=== PATIENT | male | born 1955 | race African-American/Black ===

== ENCOUNTER 2017-06-13 16:21 | Inpatient (IN) ==
[2017-06-13] MEDS ORDERED: methylPREDNISolone SOD SUC 125 MG/2 ML VIAL IV STA (16:42)
[2017-06-13] MEDS ORDERED: LEVOFLOXACIN INJ 500 MG in PREMIX 1 EACH IV STA (16:42)
[2017-06-13] MEDS ORDERED: FUROSEMIDE 100 MG/10 ML VIAL IV STA (16:42)
[2017-06-13] MEDS ORDERED: ALBUTEROL/IPRATROPIUM 3 ML NEB RESP TX STA (16:42)
[2017-06-13] MEDS ORDERED: LEVOFLOXACIN INJ 100 ML IV ONE (16:53)
[2017-06-13] MEDS ORDERED: FUROSEMIDE 40 MG/4 ML VIAL ONE (16:53)
[2017-06-13] MEDS ORDERED: FUROSEMIDE 20 MG/2 ML VIAL ONE (16:53)
[2017-06-13] MEDS ORDERED: methylPREDNISolone SOD SUC 125 MG/2 ML VIAL ONE (16:54)
[2017-06-13 17:03] LABS: Basophils % 0.3 % (0.0-0.8); Eosinophils % 0.2 % (0.00-10.9); Hematocrit 28.2 VOL% (42.0-52.0); Hemoglobin 8.4 GM/DL (14.0-18.0); Immature Granulocytes % 0.9 %; Immature Granulocytes Absolute 0.11 #; Lymphocytes % 8.4 % (21.2-54.2); Mean Corpuscular HGB Conc 29.8 GM/DL (32-36); Mean Corpuscular Hemoglobin 26 PG (27-34); Mean Corpuscular Volume 85.5 FL (87-102); Mean Platelet Volume 8.9 FL (9.6-12.0); Monocytes % 8.1 % (1.7-12.7); Neutrophils # 9.6 10*3/uL (1.4-7.4); Neutrophils % 82.1 % (38.7-73.9); Platelet Count 505 T/CUMM (130-400); Red Cell Distribution Width 15.9 % (9.3-17.3); White Blood Count 11.7 T/CUMM (4-12)
[2017-06-13 17:21] LABS: Alanine Aminotransferase 54 U/L (16-61); Albumin 2.2 G/DL (3.4-5.0); Alkaline Phosphatase 104 U/L (45-117); Aspartate Amino Transferase 48 U/L (0-37); Bilirubin,Total < 0.39 MG/DL (0.2-1.0); Blood Urea Nitrogen 12 MG/DL (7-18); Calcium 8.8 MG/DL (8.5-10.1); Glucose 120 MG/DL (74-106); Potassium 3.7 MMOL/L (3.5-5.1); Sodium 136 MMOL/L (136-145); Total Protein 7.8 G/DL (6.4-8.3); Troponin I Only < 0.015 NG/ML (0.00-0.045)
[2017-06-13 17:40] LABS: ABG Base Excess 3.2 MMOL/L (-2.5-2.5); ABG HCO3 27.4 MMOL/L (20-26); ABG PCO2 57.2 MM HG (35-48); ABG TCO2 28.1 MMOL/L (23-27)
[2017-06-13] MEDS ORDERED: ALBUTEROL NEB SOLN 5 MG/ML 20 ML/BOTTLE CONT NEB STA (17:45)
[2017-06-13] MEDS ORDERED: ONDANSETRON 4 MG/2 ML VIAL IV PRN (18:54)
[2017-06-13] MEDS: ALBUTEROL/IPRATROPIUM 3 ML NEB RESP TX SCH ×2 (19:01→23:19)
[2017-06-13] MEDS ORDERED: ETOMIDATE 20 MG/10 ML VIAL IV ONE ×2 (19:14→19:26)
[2017-06-13] MEDS ORDERED: SUCCINYLCHOLINE 200 MG/10 ML VIAL ONE (19:14)
[2017-06-13] MEDS ORDERED: PROPOFOL 1,000 MG/100 ML BOTTLE IV ONE (19:25)
[2017-06-13] MEDS ORDERED: SUCCINYLCHOLINE 200 MG/10 ML VIAL IV ONE (19:28)
[2017-06-13] MEDS: PHENYLEPHRINE DRIP 40 MG/250 ML PREMIX IV PRN (19:50)
[2017-06-13] MEDS: PROPOFOL 1,000 MG/100 ML BOTTLE IV SCH (20:00)
[2017-06-13] MEDS: SODIUM CHLORIDE 0.9% 1,000 ML IV SCH (20:19)
[2017-06-13] MEDS: PIPERACILLIN/TAZOBACTAM 3,375 MG in SODIUM CHLORIDE 0.9% 100 ML IV SCH (20:20)
[2017-06-13] MEDS: NICOTINE 21 MG/24 HR PATCH TRANSDERM PRN (20:20)
[2017-06-13] MEDS: LORazepam 2 MG/1 ML VIAL IV PRN (20:29)
[2017-06-13 20:32] LABS: ABG Base Excess 2.9 MMOL/L (-2.5-2.5); ABG PCO2 42.5 MM HG (35-48); ABG TCO2 25.8 MMOL/L (23-27); Allen Test Positive; Pt O2 Delivery Device Ventilator
[2017-06-14] MEDS: PROPOFOL 1,000 MG/100 ML BOTTLE IV SCH ×3 (01:01→16:49)
[2017-06-14] MEDS: ALBUTEROL/IPRATROPIUM 3 ML NEB RESP TX SCH ×6 (03:02→23:21)
[2017-06-14 03:09] LABS: ABG Base Excess 1.6 MMOL/L (-2.5-2.5); ABG HCO3 25.9 MMOL/L (20-26); ABG Oxygen Saturation 99.4 % (95-100); ABG PCO2 43.2 MM HG (35-48); ABG PH 7.397 (7.35-7.45); Allen Test Positive; Pt O2 Delivery Device Ventilator
[2017-06-14] MEDS: PHENYLEPHRINE DRIP 40 MG/250 ML PREMIX IV PRN ×2 (03:19→11:02)
[2017-06-14] MEDS: SODIUM CHLORIDE 0.9% 1,000 ML IV SCH ×3 (04:01→20:28)
[2017-06-14] MEDS: PIPERACILLIN/TAZOBACTAM 3,375 MG in SODIUM CHLORIDE 0.9% 100 ML IV SCH ×3 (05:24→20:27)
[2017-06-14 06:13] LABS: Basophils % 0.1 % (0.0-0.8); Immature Granulocytes % 0.9 %; Lymphocytes # 0.6 10*3/uL (1.4-4.0); Lymphocytes % 5.3 % (21.2-54.2); Mean Corpuscular HGB Conc 29.2 GM/DL (32-36); Mean Corpuscular Hemoglobin 25 PG (27-34); Mean Corpuscular Volume 85.1 FL (87-102); Monocytes # 0.5 10*3/uL (0.11-0.8); Monocytes % 4.2 % (1.7-12.7); Neutrophils # 10.4 10*3/uL (1.4-7.4); Neutrophils % 89.5 % (38.7-73.9); Platelet Count 525 T/CUMM (130-400); Red Blood Count 2.82 MC/CUMM (3.8-5.5); Red Cell Distribution Width 15.9 % (9.3-17.3); White Blood Count 11.6 T/CUMM (4-12)
[2017-06-14 06:33] LABS: Alanine Aminotransferase 44 U/L (16-61); Albumin 1.9 G/DL (3.4-5.0); Alkaline Phosphatase 90 U/L (45-117); Aspartate Amino Transferase 30 U/L (0-37); Bilirubin,Total < 0.39 MG/DL (0.2-1.0); Blood Urea Nitrogen 14 MG/DL (7-18); Calcium 8.7 MG/DL (8.5-10.1); Glucose 155 MG/DL (74-106); Osmolality,Calculated 282.4 MOS/KG (273-304); Potassium 3.9 MMOL/L (3.5-5.1); Sodium 140 MMOL/L (136-145)
[2017-06-14] MEDS ORDERED: PANTOPRAZOLE 40 MG TABLET PO SCH (09:00)
[2017-06-14] MEDS: PANTOPRAZOLE 40 MG VIAL IV SCH (10:14)
[2017-06-14] MEDS: methylPREDNISolone SOD SUC 40 MG/1 ML VIAL IV SCH ×2 (10:14→16:47)
[2017-06-14] MEDS ORDERED: SODIUM CHLORIDE 0.9% 1,000 ML IV PRN (10:50)
[2017-06-14 11:24] LABS: Apearance,Urine Slightly Hazy (Clear); Bacteria,Urine Occasional /HPF (Few); Bilirubin,Urine Negative (Negative); Blood, Urine Small mg/dL (Negative); Glucose,Urine (UA) Negative (Negative); Ketones,Urine Negative (Negative); Mucus,Urine Occasional /LPF (Occasional); Nitrite,Urine Negative (Negative); Protein,Urine Negative; RBC,Urine 3 /HPF (0-4); Squamous Epithelial Cell,Urine Occasional /HPF (0-10); Urine Color Yellow (Yellow); Urine Specific Gravity 1.011 (1.001-1.035); Urine Urobilinogen < 2.0 EU/DL (0.2-1.0); WBC,Urine 1 /HPF (0-6)
[2017-06-15] MEDS: PROPOFOL 1,000 MG/100 ML BOTTLE IV SCH ×5 (00:38→22:18)
[2017-06-15] MEDS: methylPREDNISolone SOD SUC 40 MG/1 ML VIAL IV SCH ×3 (00:43→16:29)
[2017-06-15] MEDS: ALBUTEROL/IPRATROPIUM 3 ML NEB RESP TX SCH ×6 (03:28→23:21)
[2017-06-15] MEDS: PHENYLEPHRINE DRIP 40 MG/250 ML PREMIX IV PRN (03:42)
[2017-06-15] MEDS: PIPERACILLIN/TAZOBACTAM 3,375 MG in SODIUM CHLORIDE 0.9% 100 ML IV SCH ×3 (03:42→20:06)
[2017-06-15 04:22] LABS: Basophils % 0.1 % (0.0-0.8); Hematocrit 29.2 VOL% (42.0-52.0); Hemoglobin 9.3 GM/DL (14.0-18.0); Immature Granulocytes % 0.9 %; Immature Granulocytes Absolute 0.18 #; Lymphocytes # 0.6 10*3/uL (1.4-4.0); Lymphocytes % 3.1 % (21.2-54.2); Mean Corpuscular HGB Conc 31.8 GM/DL (32-36); Mean Corpuscular Hemoglobin 27 PG (27-34); Mean Corpuscular Volume 83.9 FL (87-102); Mean Platelet Volume 9.3 FL (9.6-12.0); Monocytes # 0.6 10*3/uL (0.11-0.8); Monocytes % 2.8 % (1.7-12.7); Neutrophils # 18.2 10*3/uL (1.4-7.4); Neutrophils % 93.1 % (38.7-73.9); Platelet Count 451 T/CUMM (130-400); Red Blood Count 3.48 MC/CUMM (3.8-5.5); Red Cell Distribution Width 15.7 % (9.3-17.3); White Blood Count 19.6 T/CUMM (4-12)
[2017-06-15 04:33] LABS: ABG Base Excess 2.2 MMOL/L (-2.5-2.5); ABG HCO3 26.7 MMOL/L (20-26); ABG Oxygen Saturation 99.2 % (95-100); ABG PCO2 41.5 MM HG (35-48); ABG PH 7.427 (7.35-7.45); ABG PO2 189.8 MM HG (80-95); Allen Test Positive; Pt O2 Delivery Device Ventilator
[2017-06-15 04:57] LABS: Calcium 8.9 MG/DL (8.5-10.1); Osmolality,Calculated 286.8 MOS/KG (273-304); Potassium 4.4 MMOL/L (3.5-5.1)
[2017-06-15] MEDS: SODIUM CHLORIDE 0.9% 1,000 ML IV SCH ×2 (05:23→11:52)
[2017-06-15 05:30] LABS: Hypochromasia 1+; Lymphocytes 1 % (20-55); Platelet Estimate Adequate; Segmented Neutrophils 97 % (50-85); Target Cells Few; Total Cells Counted 100
[2017-06-15 05:31] LABS: Ovalocytes Slight
[2017-06-15] MEDS: PANTOPRAZOLE 40 MG VIAL IV SCH (09:20)
[2017-06-15] MEDS: NICOTINE 21 MG/24 HR PATCH TRANSDERM PRN (09:22)
[2017-06-16] MEDS: methylPREDNISolone SOD SUC 40 MG/1 ML VIAL IV SCH ×3 (02:18→16:33)
[2017-06-16] MEDS: SODIUM CHLORIDE 0.9% 1,000 ML IV SCH ×3 (02:19→18:43)
[2017-06-16] MEDS: PROPOFOL 1,000 MG/100 ML BOTTLE IV SCH ×5 (02:20→22:02)
[2017-06-16] MEDS: ALBUTEROL/IPRATROPIUM 3 ML NEB RESP TX SCH ×6 (02:53→23:56)
[2017-06-16] MEDS: PIPERACILLIN/TAZOBACTAM 3,375 MG in SODIUM CHLORIDE 0.9% 100 ML IV SCH ×3 (03:35→22:01)
[2017-06-16 04:36] LABS: ABG Base Excess 4.1 MMOL/L (-2.5-2.5); ABG HCO3 28.1 MMOL/L (20-26); ABG Oxygen Saturation 99.5 % (95-100); ABG PCO2 47.9 MM HG (35-48); ABG PH 7.402 (7.35-7.45); ABG TCO2 26.1 MMOL/L (23-27); Allen Test Positive; Pt O2 Delivery Device Ventilator
[2017-06-16 05:34] LABS: Basophils % 0.1 % (0.0-0.8); Hematocrit 29.7 VOL% (42.0-52.0); Hemoglobin 9.4 GM/DL (14.0-18.0); Immature Granulocytes % 0.8 %; Immature Granulocytes Absolute 0.14 #; Lymphocytes # 0.5 10*3/uL (1.4-4.0); Lymphocytes % 2.8 % (21.2-54.2); Mean Corpuscular HGB Conc 31.6 GM/DL (32-36); Mean Corpuscular Hemoglobin 27 PG (27-34); Mean Corpuscular Volume 84.9 FL (87-102); Mean Platelet Volume 9.4 FL (9.6-12.0); Monocytes # 0.6 10*3/uL (0.11-0.8); Monocytes % 3.5 % (1.7-12.7); Neutrophils # 15.4 10*3/uL (1.4-7.4); Neutrophils % 92.8 % (38.7-73.9); Platelet Count 404 T/CUMM (130-400); Red Cell Distribution Width 16.3 % (9.3-17.3); White Blood Count 16.6 T/CUMM (4-12)
[2017-06-16 06:00] LABS: Calcium 8.8 MG/DL (8.5-10.1); Osmolality,Calculated 290.7 MOS/KG (273-304); Potassium 4.1 MMOL/L (3.5-5.1)
[2017-06-16 06:27] LABS: Band Neutrophils 1 % (0-10); Lymphocytes 2 % (20-55); Myelocytes 1 %; Segmented Neutrophils 96 % (50-85); Total Cells Counted 100
[2017-06-16 06:28] LABS: Anisocytosis 1+
[2017-06-16 06:30] LABS: Hypochromasia 1+; Platelet Estimate Normal; Target Cells Few
[2017-06-16] MEDS ORDERED: LIDOCAINE 1% 20 ML VIAL MISC INJ ONE (07:30)
[2017-06-16] MEDS: PHENYLEPHRINE DRIP 40 MG/250 ML PREMIX IV PRN (07:31)
[2017-06-16] MEDS: PANTOPRAZOLE 40 MG VIAL IV SCH (09:37)
[2017-06-17] MEDS: methylPREDNISolone SOD SUC 40 MG/1 ML VIAL IV SCH ×3 (01:32→17:03)
[2017-06-17] MEDS: ALBUTEROL/IPRATROPIUM 3 ML NEB RESP TX SCH ×6 (03:41→23:53)
[2017-06-17] MEDS: PIPERACILLIN/TAZOBACTAM 3,375 MG in SODIUM CHLORIDE 0.9% 100 ML IV SCH ×3 (04:16→19:59)
[2017-06-17 04:42] LABS: ABG PH 7.417 (7.35-7.45); ABG PO2 138.4 MM HG (80-95); ABG TCO2 35.7 MMOL/L (23-27); Allen Test Positive; Pt O2 Delivery Device Ventilator
[2017-06-17] MEDS: SODIUM CHLORIDE 0.9% 1,000 ML IV SCH ×2 (05:36→15:36)
[2017-06-17 05:50] LABS: Basophils % 0.1 % (0.0-0.8); Hematocrit 30.3 VOL% (42.0-52.0); Immature Granulocytes % 1.1 %; Immature Granulocytes Absolute 0.17 #; Lymphocytes # 0.7 10*3/uL (1.4-4.0); Lymphocytes % 4.3 % (21.2-54.2); Mean Corpuscular HGB Conc 29.7 GM/DL (32-36); Mean Corpuscular Hemoglobin 26 PG (27-34); Mean Corpuscular Volume 88.6 FL (87-102); Mean Platelet Volume 9.5 FL (9.6-12.0); Monocytes # 0.9 10*3/uL (0.11-0.8); Monocytes % 5.5 % (1.7-12.7); Neutrophils # 14.2 10*3/uL (1.4-7.4); Platelet Count 337 T/CUMM (130-400); Red Blood Count 3.42 MC/CUMM (3.8-5.5); Red Cell Distribution Width 16.7 % (9.3-17.3); White Blood Count 15.9 T/CUMM (4-12)
[2017-06-17 06:19] LABS: Platelet Estimate Normal
[2017-06-17 06:22] LABS: Calcium 8.7 MG/DL (8.5-10.1); Osmolality,Calculated 286.8 MOS/KG (273-304); Potassium 4.5 MMOL/L (3.5-5.1); Prealbumin 11.8 MG/DL (20-40)
[2017-06-17] MEDS: PANTOPRAZOLE 40 MG VIAL IV SCH (09:28)
[2017-06-17] MEDS: PROPOFOL 1,000 MG/100 ML BOTTLE IV SCH ×3 (10:46→23:58)
[2017-06-17] MEDS: PHENYLEPHRINE DRIP 40 MG/250 ML PREMIX IV PRN (14:16)
[2017-06-18] MEDS: methylPREDNISolone SOD SUC 40 MG/1 ML VIAL IV SCH ×3 (02:21→17:53)
[2017-06-18] MEDS: PIPERACILLIN/TAZOBACTAM 3,375 MG in SODIUM CHLORIDE 0.9% 100 ML IV SCH ×3 (03:08→19:46)
[2017-06-18 03:40] LABS: ABG Base Excess 8.1 MMOL/L (-2.5-2.5); ABG HCO3 31.9 MMOL/L (20-26); ABG Oxygen Saturation 99.5 % (95-100); ABG PCO2 50.3 MM HG (35-48); ABG PH 7.433 (7.35-7.45); ABG TCO2 30.8 MMOL/L (23-27)
[2017-06-18] MEDS: ALBUTEROL/IPRATROPIUM 3 ML NEB RESP TX SCH ×6 (03:52→23:46)
[2017-06-18] MEDS: PROPOFOL 1,000 MG/100 ML BOTTLE IV SCH ×3 (04:01→17:55)
[2017-06-18 06:11] LABS: Calcium 8.6 MG/DL (8.5-10.1); Osmolality,Calculated 286.1 MOS/KG (273-304); Potassium 4.1 MMOL/L (3.5-5.1)
[2017-06-18] MEDS: SODIUM CHLORIDE 0.9% 1,000 ML IV SCH ×3 (07:19→21:31)
[2017-06-18] MEDS: PANTOPRAZOLE 40 MG VIAL IV SCH (08:12)
[2017-06-18] MEDS: MORPHINE 4 MG/1 ML VIAL IV PRN ×2 (08:13→15:02)
[2017-06-18] MEDS: LORazepam 2 MG/1 ML VIAL IV PRN ×2 (08:13→15:00)
[2017-06-18] MEDS: PHENYLEPHRINE DRIP 40 MG/250 ML PREMIX IV PRN (09:29)
[2017-06-18 19:26] LABS: AFP Tumor 1.3 NG/ML (0-8); Carcinoembryonic Antigen 3.4 NG/ML (0.0-5.0)
[2017-06-19] MEDS: LORazepam 2 MG/1 ML VIAL IV PRN ×2 (00:15→17:40)
[2017-06-19] MEDS: methylPREDNISolone SOD SUC 40 MG/1 ML VIAL IV SCH ×3 (01:20→16:00)
[2017-06-19] MEDS: PROPOFOL 1,000 MG/100 ML BOTTLE IV SCH ×5 (01:53→23:27)
[2017-06-19] MEDS: PIPERACILLIN/TAZOBACTAM 3,375 MG in SODIUM CHLORIDE 0.9% 100 ML IV SCH ×3 (03:51→19:52)
[2017-06-19] MEDS: ALBUTEROL/IPRATROPIUM 3 ML NEB RESP TX SCH ×6 (03:59→23:15)
[2017-06-19 04:15] LABS: ABG Base Excess 6.8 MMOL/L (-2.5-2.5); ABG HCO3 32.3 MMOL/L (20-26); ABG Oxygen Saturation 98.9 % (95-100); ABG PCO2 50.7 MM HG (35-48); ABG PH 7.422 (7.35-7.45); ABG PO2 138.8 MM HG (80-95); ABG TCO2 33.9 MMOL/L (23-27); Allen Test Positive; Pt O2 Delivery Device Ventilator
[2017-06-19] MEDS: MORPHINE 4 MG/1 ML VIAL IV PRN ×2 (07:34→11:14)
[2017-06-19] MEDS: SODIUM CHLORIDE 0.9% 1,000 ML IV SCH ×2 (07:36→14:50)
[2017-06-19] MEDS: PANTOPRAZOLE 40 MG VIAL IV SCH (09:09)
[2017-06-19] MEDS: PHENYLEPHRINE DRIP 40 MG/250 ML PREMIX IV PRN (09:23)
[2017-06-20] MEDS: methylPREDNISolone SOD SUC 40 MG/1 ML VIAL IV SCH ×3 (01:25→17:15)
[2017-06-20] MEDS: ALBUTEROL/IPRATROPIUM 3 ML NEB RESP TX SCH ×6 (03:40→23:56)
[2017-06-20] MEDS: PIPERACILLIN/TAZOBACTAM 3,375 MG in SODIUM CHLORIDE 0.9% 100 ML IV SCH ×3 (03:40→20:51)
[2017-06-20] MEDS: SODIUM CHLORIDE 0.9% 1,000 ML IV SCH ×2 (03:43→11:19)
[2017-06-20 04:48] LABS: Allen Test Positive; Pt O2 Delivery Device Ventilator
[2017-06-20 04:49] LABS: ABG Base Excess 6.5 MMOL/L (-2.5-2.5); ABG HCO3 30.4 MMOL/L (20-26); ABG Oxygen Saturation 99.6 % (95-100); ABG PCO2 43.2 MM HG (35-48); ABG PH 7.464 (7.35-7.45); ABG TCO2 28.3 MMOL/L (23-27)
[2017-06-20 06:32] LABS: Calcium 8.6 MG/DL (8.5-10.1); Osmolality,Calculated 285.1 MOS/KG (273-304); Potassium 4.3 MMOL/L (3.5-5.1); Prealbumin 18.4 MG/DL (20-40)
[2017-06-20] MEDS: PROPOFOL 1,000 MG/100 ML BOTTLE IV SCH ×3 (07:06→18:17)
[2017-06-20] MEDS: LORazepam 2 MG/1 ML VIAL IV PRN (08:42)
[2017-06-20] MEDS: PANTOPRAZOLE 40 MG VIAL IV SCH (08:45)
[2017-06-20] MEDS: PHENYLEPHRINE DRIP 40 MG/250 ML PREMIX IV PRN (18:33)
[2017-06-21] MEDS: SODIUM CHLORIDE 0.9% 1,000 ML IV SCH ×2 (00:22→14:50)
[2017-06-21] MEDS: PROPOFOL 1,000 MG/100 ML BOTTLE IV SCH ×4 (00:37→19:22)
[2017-06-21] MEDS: methylPREDNISolone SOD SUC 40 MG/1 ML VIAL IV SCH ×4 (00:38→17:00)
[2017-06-21] MEDS: ALBUTEROL/IPRATROPIUM 3 ML NEB RESP TX SCH ×6 (03:50→22:57)
[2017-06-21 04:08] LABS: Allen Test Positive; Pt O2 Delivery Device Ventilator
[2017-06-21 04:09] LABS: ABG Base Excess 6.8 MMOL/L (-2.5-2.5); ABG HCO3 30.7 MMOL/L (20-26); ABG Oxygen Saturation 99.5 % (95-100); ABG PCO2 40.7 MM HG (35-48); ABG PH 7.487 (7.35-7.45); ABG TCO2 28.2 MMOL/L (23-27)
[2017-06-21] MEDS: PIPERACILLIN/TAZOBACTAM 3,375 MG in SODIUM CHLORIDE 0.9% 100 ML IV SCH ×3 (05:00→19:50)
[2017-06-21 05:18] LABS: Basophils % 0.1 % (0.0-0.8); Eosinophils % 0.1 % (0.00-10.9); Hematocrit 30.8 VOL% (42.0-52.0); Hemoglobin 9.2 GM/DL (14.0-18.0); Immature Granulocytes % 1.1 %; Immature Granulocytes Absolute 0.14 #; Lymphocytes # 1.6 10*3/uL (1.4-4.0); Lymphocytes % 12.4 % (21.2-54.2); Mean Corpuscular HGB Conc 29.9 GM/DL (32-36); Mean Corpuscular Hemoglobin 27 PG (27-34); Mean Corpuscular Volume 89.5 FL (87-102); Mean Platelet Volume 10.6 FL (9.6-12.0); Monocytes % 7.7 % (1.7-12.7); Neutrophils # 9.8 10*3/uL (1.4-7.4); Neutrophils % 78.6 % (38.7-73.9); Platelet Count 260 T/CUMM (130-400); Red Blood Count 3.44 MC/CUMM (3.8-5.5); Red Cell Distribution Width 17.8 % (9.3-17.3); White Blood Count 12.5 T/CUMM (4-12)
[2017-06-21 05:59] LABS: Calcium 8.6 MG/DL (8.5-10.1); Potassium 4.1 MMOL/L (3.5-5.1)
[2017-06-21] MEDS: LORazepam 2 MG/1 ML VIAL IV PRN (07:15)
[2017-06-21] MEDS: PANTOPRAZOLE 40 MG VIAL IV SCH (09:58)
[2017-06-21] MEDS ORDERED: MIDAZOLAM 10 MG/2 ML VIAL ONE (11:54)
[2017-06-21] MEDS ORDERED: MIDAZOLAM 2 MG/2 ML VIAL IV ONE (12:17)
[2017-06-21] MEDS: PHENYLEPHRINE DRIP 40 MG/250 ML PREMIX IV PRN ×2 (14:00→20:14)
[2017-06-21 14:36] LABS: ABG Base Excess 1.4 MMOL/L (-2.5-2.5); ABG HCO3 28.8 MMOL/L (20-26); ABG Oxygen Saturation 99.9 % (95-100); ABG PCO2 61.1 MM HG (35-48); ABG PH 7.291 (7.35-7.45); ABG PO2 460.3 MM HG (80-95); ABG TCO2 30.7 MMOL/L (23-27)
[2017-06-21] MEDS: MORPHINE 4 MG/1 ML VIAL IV PRN (15:22)
[2017-06-21] MEDS: ZINC OXIDE PASTE 113 GM TUBE TOP SCH (15:54)
[2017-06-21] MEDS ORDERED: RACEPINEPHRINE 0.5 ML NEB RESP TX ONE (22:44)
[2017-06-22] MEDS: ZINC OXIDE PASTE 113 GM TUBE TOP SCH ×3 (01:04→21:24)
[2017-06-22] MEDS: methylPREDNISolone SOD SUC 40 MG/1 ML VIAL IV SCH ×3 (01:04→18:06)
[2017-06-22] MEDS: PROPOFOL 1,000 MG/100 ML BOTTLE IV SCH ×4 (01:12→19:18)
[2017-06-22] MEDS: PHENYLEPHRINE DRIP 40 MG/250 ML PREMIX IV PRN ×4 (01:40→19:31)
[2017-06-22] MEDS: PIPERACILLIN/TAZOBACTAM 3,375 MG in SODIUM CHLORIDE 0.9% 100 ML IV SCH ×3 (02:57→19:32)
[2017-06-22] MEDS: ALBUTEROL/IPRATROPIUM 3 ML NEB RESP TX SCH ×6 (03:44→23:05)
[2017-06-22 04:22] LABS: ABG Base Excess 2.6 MMOL/L (-2.5-2.5); ABG HCO3 26.8 MMOL/L (20-26); ABG Oxygen Saturation 99.9 % (95-100); ABG PCO2 50.8 MM HG (35-48); ABG PH 7.362 (7.35-7.45); ABG TCO2 26.4 MMOL/L (23-27)
[2017-06-22] MEDS ORDERED: VECURONIUM 10 MG VIAL IV ONE ×3 (07:07→07:13)
[2017-06-22 07:09] LABS: Calcium 8.7 MG/DL (8.5-10.1); Osmolality,Calculated 284.3 MOS/KG (273-304); Potassium 4.6 MMOL/L (3.5-5.1)
[2017-06-22] MEDS ORDERED: fentaNYL 100 MCG/2 ML VIAL IV ONE (07:12)
[2017-06-22 07:17] LABS: Basophils % 0.1 % (0.0-0.8); Hematocrit 32.8 VOL% (42.0-52.0); Hemoglobin 9.9 GM/DL (14.0-18.0); Immature Granulocytes % 1.4 %; Immature Granulocytes Absolute 0.26 #; Lymphocytes # 0.7 10*3/uL (1.4-4.0); Lymphocytes % 3.6 % (21.2-54.2); Mean Corpuscular HGB Conc 30.2 GM/DL (32-36); Mean Corpuscular Hemoglobin 27 PG (27-34); Mean Corpuscular Volume 88.9 FL (87-102); Mean Platelet Volume 10.9 FL (9.6-12.0); Monocytes # 1.1 10*3/uL (0.11-0.8); Monocytes % 5.9 % (1.7-12.7); Neutrophils # 16.9 10*3/uL (1.4-7.4); Platelet Count 293 T/CUMM (130-400); Red Blood Count 3.69 MC/CUMM (3.8-5.5); Red Cell Distribution Width 16.6 % (9.3-17.3)
[2017-06-22 07:36] LABS: Lymphocytes 1 % (20-55); Segmented Neutrophils 94 % (50-85); Total Cells Counted 100
[2017-06-22 07:37] LABS: Hypochromasia 1+; Microcytosis 1+
[2017-06-22 07:38] LABS: Giant Platelets Few; Platelet Estimate Normal
[2017-06-22 09:14] LABS: ABG Base Excess 1.7 MMOL/L (-2.5-2.5); ABG HCO3 25.9 MMOL/L (20-26); ABG Oxygen Saturation 96.9 % (95-100); ABG PH 7.239 (7.35-7.45); ABG TCO2 28.8 MMOL/L (23-27)
[2017-06-22 09:15] LABS: ABG PCO2 72.5 MM HG (35-48)
[2017-06-22 10:04] LABS: ABG Base Excess 3.4 MMOL/L (-2.5-2.5); ABG HCO3 30.2 MMOL/L (20-26); ABG PCO2 57.5 MM HG (35-48); ABG PH 7.338 (7.35-7.45); ABG PO2 106.8 MM HG (80-95)
[2017-06-22] MEDS: PANTOPRAZOLE 40 MG VIAL IV SCH (10:05)
[2017-06-22] MEDS: SODIUM CHLORIDE 0.9% 1,000 ML IV SCH (13:27)
[2017-06-23] MEDS: methylPREDNISolone SOD SUC 40 MG/1 ML VIAL IV SCH ×3 (01:22→17:20)
[2017-06-23] MEDS: PHENYLEPHRINE DRIP 40 MG/250 ML PREMIX IV PRN ×4 (01:41→19:05)
[2017-06-23] MEDS: PROPOFOL 1,000 MG/100 ML BOTTLE IV SCH ×5 (01:51→21:06)
[2017-06-23] MEDS: MORPHINE 4 MG/1 ML VIAL IV PRN ×2 (02:03→15:45)
[2017-06-23] MEDS: ALBUTEROL/IPRATROPIUM 3 ML NEB RESP TX SCH ×6 (03:00→23:11)
[2017-06-23] MEDS: PIPERACILLIN/TAZOBACTAM 3,375 MG in SODIUM CHLORIDE 0.9% 100 ML IV SCH ×3 (03:47→19:17)
[2017-06-23 03:52] LABS: ABG Base Excess 5.3 MMOL/L (-2.5-2.5); ABG HCO3 29.2 MMOL/L (20-26); ABG Oxygen Saturation 98.8 % (95-100); ABG PCO2 61.7 MM HG (35-48); ABG PH 7.333 (7.35-7.45); ABG TCO2 30.1 MMOL/L (23-27); Allen Test Positive; Pt O2 Delivery Device Ventilator
[2017-06-23] MEDS: SODIUM CHLORIDE 0.9% 1,000 ML IV SCH ×2 (05:09→19:30)
[2017-06-23 05:19] LABS: Albumin 1.9 G/DL (3.4-5.0); Bilirubin,Total 0.8 MG/DL (0.2-1.0); Calcium 8.8 MG/DL (8.5-10.1); Osmolality,Calculated 284.3 MOS/KG (273-304); Potassium 5.6 MMOL/L (3.5-5.1); Total Protein 6.9 G/DL (6.4-8.3)
[2017-06-23 05:38] LABS: Basophils % 0.1 % (0.0-0.8); Hematocrit 34.4 VOL% (42.0-52.0); Hemoglobin 10.3 GM/DL (14.0-18.0); Immature Granulocytes % 0.7 %; Lymphocytes # 0.4 10*3/uL (1.4-4.0); Lymphocytes % 2.5 % (21.2-54.2); Mean Corpuscular HGB Conc 29.9 GM/DL (32-36); Mean Corpuscular Hemoglobin 27 PG (27-34); Mean Corpuscular Volume 90.3 FL (87-102); Mean Platelet Volume 12.2 FL (9.6-12.0); Monocytes # 0.9 10*3/uL (0.11-0.8); Monocytes % 5.9 % (1.7-12.7); Neutrophils # 13.6 10*3/uL (1.4-7.4); Neutrophils % 90.8 % (38.7-73.9); Platelet Count 181 T/CUMM (130-400); Red Blood Count 3.81 MC/CUMM (3.8-5.5); Red Cell Distribution Width 16.8 % (9.3-17.3)
[2017-06-23 06:20] LABS: Band Neutrophils 5 % (0-10); Lymphocytes 10 % (20-55); Segmented Neutrophils 81 % (50-85); Total Cells Counted 100
[2017-06-23 06:21] LABS: Anisocytosis 1+; Poikilocytosis 1+
[2017-06-23] MEDS: PANTOPRAZOLE 40 MG VIAL IV SCH (08:23)
[2017-06-23] MEDS: ZINC OXIDE PASTE 113 GM TUBE TOP SCH ×2 (08:24→21:07)
[2017-06-24] MEDS: PROPOFOL 1,000 MG/100 ML BOTTLE IV SCH ×6 (00:35→22:45)
[2017-06-24] MEDS: methylPREDNISolone SOD SUC 40 MG/1 ML VIAL IV SCH ×3 (01:05→17:20)
[2017-06-24] MEDS: ALBUTEROL/IPRATROPIUM 3 ML NEB RESP TX SCH ×6 (02:30→23:02)
[2017-06-24] MEDS: MORPHINE 4 MG/1 ML VIAL IV PRN ×2 (03:08→12:32)
[2017-06-24] MEDS: PIPERACILLIN/TAZOBACTAM 3,375 MG in SODIUM CHLORIDE 0.9% 100 ML IV SCH ×3 (03:11→18:35)
[2017-06-24] MEDS: SODIUM CHLORIDE 0.9% 1,000 ML IV SCH ×2 (03:13→12:26)
[2017-06-24 03:37] LABS: ABG Base Excess 9.5 MMOL/L (-2.5-2.5); ABG Oxygen Saturation 99.5 % (95-100); ABG PCO2 46.4 MM HG (35-48); ABG PH 7.483 (7.35-7.45); ABG PO2 232.1 MM HG (80-95); ABG TCO2 35.4 MMOL/L (23-27); Allen Test Positive; Pt O2 Delivery Device Ventilator
[2017-06-24] MEDS: PHENYLEPHRINE DRIP 40 MG/250 ML PREMIX IV PRN (03:45)
[2017-06-24 05:23] LABS: Basophils % 0.2 % (0.0-0.8); Hematocrit 29.1 VOL% (42.0-52.0); Hemoglobin 8.8 GM/DL (14.0-18.0); Immature Granulocytes % 0.6 %; Immature Granulocytes Absolute 0.11 #; Lymphocytes # 0.4 10*3/uL (1.4-4.0); Lymphocytes % 2.3 % (21.2-54.2); Mean Corpuscular HGB Conc 30.2 GM/DL (32-36); Mean Corpuscular Hemoglobin 27 PG (27-34); Mean Corpuscular Volume 89.5 FL (87-102); Mean Platelet Volume 11.8 FL (9.6-12.0); Monocytes # 0.7 10*3/uL (0.11-0.8); Monocytes % 3.7 % (1.7-12.7); Neutrophils # 17.1 10*3/uL (1.4-7.4); Neutrophils % 93.2 % (38.7-73.9); Platelet Count 243 T/CUMM (130-400); Red Blood Count 3.25 MC/CUMM (3.8-5.5); Red Cell Distribution Width 17.2 % (9.3-17.3); White Blood Count 18.4 T/CUMM (4-12)
[2017-06-24 05:50] LABS: Albumin 1.7 G/DL (3.4-5.0); Bilirubin,Total 0.7 MG/DL (0.2-1.0); Calcium 8.4 MG/DL (8.5-10.1); Osmolality,Calculated 287.1 MOS/KG (273-304); Potassium 4.5 MMOL/L (3.5-5.1); Total Protein 5.9 G/DL (6.4-8.3)
[2017-06-24 05:51] LABS: Hypochromasia 1+; Lymphocytes 1 % (20-55); Microcytosis Slight; Platelet Estimate Adequate; Segmented Neutrophils 97 % (50-85); Total Cells Counted 100
[2017-06-24 06:19] LABS: Prealbumin 21.7 MG/DL (20-40)
[2017-06-24] MEDS: PANTOPRAZOLE 40 MG VIAL IV SCH (09:30)
[2017-06-24] MEDS: ZINC OXIDE PASTE 113 GM TUBE TOP SCH ×2 (09:31→22:15)
[2017-06-25] MEDS: methylPREDNISolone SOD SUC 40 MG/1 ML VIAL IV SCH ×3 (00:25→17:28)
[2017-06-25] MEDS: SODIUM CHLORIDE 0.9% 1,000 ML IV SCH ×2 (00:55→20:17)
[2017-06-25] MEDS: ALBUTEROL/IPRATROPIUM 3 ML NEB RESP TX SCH ×6 (03:18→23:30)
[2017-06-25] MEDS: PIPERACILLIN/TAZOBACTAM 3,375 MG in SODIUM CHLORIDE 0.9% 100 ML IV SCH ×3 (03:24→18:30)
[2017-06-25 04:25] LABS: ABG Base Excess 8.3 MMOL/L (-2.5-2.5); ABG HCO3 32.1 MMOL/L (20-26); ABG Oxygen Saturation 99.1 % (95-100); ABG PCO2 41.3 MM HG (35-48); ABG PH 7.501 (7.35-7.45); ABG TCO2 29.7 MMOL/L (23-27); Pt O2 Delivery Device Ventilator
[2017-06-25] MEDS: PROPOFOL 1,000 MG/100 ML BOTTLE IV SCH ×4 (04:58→20:56)
[2017-06-25 05:19] LABS: Basophils % 0.1 % (0.0-0.8); Hematocrit 28.5 VOL% (42.0-52.0); Hemoglobin 8.9 GM/DL (14.0-18.0); Immature Granulocytes % 0.6 %; Immature Granulocytes Absolute 0.11 #; Lymphocytes # 0.4 10*3/uL (1.4-4.0); Lymphocytes % 2.2 % (21.2-54.2); Mean Corpuscular HGB Conc 31.2 GM/DL (32-36); Mean Corpuscular Hemoglobin 27 PG (27-34); Mean Corpuscular Volume 85.8 FL (87-102); Monocytes # 0.9 10*3/uL (0.11-0.8); Monocytes % 4.7 % (1.7-12.7); Neutrophils # 16.6 10*3/uL (1.4-7.4); Neutrophils % 92.4 % (38.7-73.9); Platelet Count 258 T/CUMM (130-400); Red Blood Count 3.32 MC/CUMM (3.8-5.5); Red Cell Distribution Width 17.8 % (9.3-17.3); White Blood Count 17.9 T/CUMM (4-12)
[2017-06-25 05:40] LABS: Band Neutrophils 1 % (0-10); Lymphocytes 4 % (20-55); Segmented Neutrophils 93 % (50-85); Total Cells Counted 100
[2017-06-25 05:41] LABS: Hypochromasia 1+; Microcytosis 1+
[2017-06-25 05:42] LABS: Platelet Estimate Normal
[2017-06-25 05:53] LABS: Calcium 8.6 MG/DL (8.5-10.1); Osmolality,Calculated 281.5 MOS/KG (273-304); Potassium 4.3 MMOL/L (3.5-5.1)
[2017-06-25] MEDS: PHENYLEPHRINE DRIP 40 MG/250 ML PREMIX IV PRN ×2 (07:13→13:33)
[2017-06-25] MEDS: ZINC OXIDE PASTE 113 GM TUBE TOP SCH ×2 (08:00→20:14)
[2017-06-25] MEDS: PANTOPRAZOLE 40 MG VIAL IV SCH (08:00)
[2017-06-25] MEDS: MORPHINE 4 MG/1 ML VIAL IV PRN ×2 (08:02→20:14)
[2017-06-25] MEDS: INSULIN REGULAR 100 UNIT/ML SUBCUT SCH ×3 (13:00→23:27)
[2017-06-25] MEDS ORDERED: ACETAMINOPHEN 325 MG TABLET PO PRN (17:30)
[2017-06-26] MEDS: PIPERACILLIN/TAZOBACTAM 3,375 MG in SODIUM CHLORIDE 0.9% 100 ML IV SCH (02:35)
[2017-06-26] MEDS: PROPOFOL 1,000 MG/100 ML BOTTLE IV SCH ×4 (02:36→19:16)
[2017-06-26] MEDS: methylPREDNISolone SOD SUC 40 MG/1 ML VIAL IV SCH ×3 (02:36→17:08)
[2017-06-26 04:24] LABS: Basophils % 0.1 % (0.0-0.8); Eosinophils % 0.1 % (0.00-10.9); Hematocrit 30.2 VOL% (42.0-52.0); Hemoglobin 9.2 GM/DL (14.0-18.0); Immature Granulocytes % 0.8 %; Immature Granulocytes Absolute 0.12 #; Lymphocytes # 0.9 10*3/uL (1.4-4.0); Lymphocytes % 5.8 % (21.2-54.2); Mean Corpuscular HGB Conc 30.5 GM/DL (32-36); Mean Corpuscular Hemoglobin 27 PG (27-34); Mean Corpuscular Volume 88.3 FL (87-102); Mean Platelet Volume 11.7 FL (9.6-12.0); Monocytes % 6.8 % (1.7-12.7); Neutrophils # 13.2 10*3/uL (1.4-7.4); Neutrophils % 86.4 % (38.7-73.9); Platelet Count 253 T/CUMM (130-400); Red Blood Count 3.42 MC/CUMM (3.8-5.5); Red Cell Distribution Width 18.2 % (9.3-17.3); White Blood Count 15.2 T/CUMM (4-12)
[2017-06-26] MEDS: ALBUTEROL/IPRATROPIUM 3 ML NEB RESP TX SCH ×6 (04:25→23:30)
[2017-06-26 04:29] LABS: ABG Base Excess 8.2 MMOL/L (-2.5-2.5); ABG PCO2 40.9 MM HG (35-48); ABG PH 7.503 (7.35-7.45); ABG TCO2 29.7 MMOL/L (23-27); Pt O2 Delivery Device Ventilator
[2017-06-26 04:53] LABS: Calcium 8.6 MG/DL (8.5-10.1); Osmolality,Calculated 286.1 MOS/KG (273-304); Potassium 4.2 MMOL/L (3.5-5.1)
[2017-06-26] MEDS: INSULIN REGULAR 100 UNIT/ML SUBCUT SCH ×4 (05:45→23:26)
[2017-06-26] MEDS: PHENYLEPHRINE DRIP 40 MG/250 ML PREMIX IV PRN (08:33)
[2017-06-26] MEDS: SODIUM CHLORIDE 0.9% 1,000 ML IV SCH (08:46)
[2017-06-26] MEDS: PANTOPRAZOLE 40 MG VIAL IV SCH (09:21)
[2017-06-26] MEDS: ZINC OXIDE PASTE 113 GM TUBE TOP SCH ×2 (09:33→21:10)
[2017-06-26] MEDS: MORPHINE 4 MG/1 ML VIAL IV PRN (18:18)
[2017-06-27] MEDS: methylPREDNISolone SOD SUC 40 MG/1 ML VIAL IV SCH ×3 (00:03→17:37)
[2017-06-27] MEDS: PROPOFOL 1,000 MG/100 ML BOTTLE IV SCH ×5 (00:04→20:10)
[2017-06-27] MEDS: ALBUTEROL/IPRATROPIUM 3 ML NEB RESP TX SCH ×6 (03:50→23:57)
[2017-06-27 04:33] LABS: ABG Base Excess 10.5 MMOL/L (-2.5-2.5); ABG HCO3 36.2 MMOL/L (20-26); ABG PCO2 51.9 MM HG (35-48); ABG PH 7.462 (7.35-7.45); ABG PO2 57.7 MM HG (80-95); ABG TCO2 37.8 MMOL/L (23-27)
[2017-06-27] MEDS: MORPHINE 4 MG/1 ML VIAL IV PRN ×2 (04:47→04:57)
[2017-06-27] MEDS: SODIUM CHLORIDE 0.9% 1,000 ML IV SCH (04:49)
[2017-06-27] MEDS: INSULIN REGULAR 100 UNIT/ML SUBCUT SCH ×3 (05:44→18:00)
[2017-06-27 07:38] LABS: Basophils % 0.1 % (0.0-0.8); Eosinophils % 0.1 % (0.00-10.9); Hematocrit 26.2 VOL% (42.0-52.0); Hemoglobin 7.9 GM/DL (14.0-18.0); Immature Granulocytes % 0.8 %; Immature Granulocytes Absolute 0.14 #; Lymphocytes # 0.7 10*3/uL (1.4-4.0); Lymphocytes % 4.3 % (21.2-54.2); Mean Corpuscular HGB Conc 30.2 GM/DL (32-36); Mean Corpuscular Hemoglobin 27 PG (27-34); Mean Corpuscular Volume 88.5 FL (87-102); Mean Platelet Volume 11.4 FL (9.6-12.0); Monocytes # 0.8 10*3/uL (0.11-0.8); Monocytes % 4.8 % (1.7-12.7); Neutrophils # 14.9 10*3/uL (1.4-7.4); Neutrophils % 89.9 % (38.7-73.9); Platelet Count 234 T/CUMM (130-400); Red Blood Count 2.96 MC/CUMM (3.8-5.5); White Blood Count 16.6 T/CUMM (4-12)
[2017-06-27] MEDS ORDERED: FAMOTIDINE 20 MG/2 ML VIAL IV ONE (08:00)
[2017-06-27 08:06] LABS: Alanine Aminotransferase 277 U/L (16-61); Albumin 1.6 G/DL (3.4-5.0); Alkaline Phosphatase 183 U/L (45-117); Aspartate Amino Transferase 67 U/L (0-37); Bilirubin,Total < 0.39 MG/DL (0.2-1.0); Blood Urea Nitrogen 17 MG/DL (7-18); Calcium 8.6 MG/DL (8.5-10.1); Glucose 149 MG/DL (74-106); Potassium 3.9 MMOL/L (3.5-5.1); Sodium 143 MMOL/L (136-145); Total Protein 5.8 G/DL (6.4-8.3)
[2017-06-27 08:07] LABS: Prealbumin 19.8 MG/DL (20-40)
[2017-06-27] MEDS ORDERED: FAMOTIDINE INJ 40 MG in SODIUM CHLORIDE 0.9% 100 ML IV ONE (09:00)
[2017-06-27] MEDS ORDERED: DEXAMETHASONE INJ 20 MG in SODIUM CHLORIDE 0.9% 50 ML IV ONE (09:00)
[2017-06-27] MEDS ORDERED: diphenhydrAMINE 50 MG/1 ML VIAL IV ONE (09:00)
[2017-06-27] MEDS: PANTOPRAZOLE 40 MG VIAL IV SCH (09:27)
[2017-06-27] MEDS: ZINC OXIDE PASTE 113 GM TUBE TOP SCH ×2 (09:28→20:56)
[2017-06-27] MEDS: GRANISETRON 1 MG/1 ML VIAL IV SCH (09:29)
[2017-06-27] MEDS ORDERED: SODIUM CHLORIDE 0.9% IV ONE (10:00)
[2017-06-27] MEDS: FLUCONAZOLE INJ 100 MG in IV BAG 1 EACH IV SCH (10:00)
[2017-06-27] MEDS ORDERED: PACLITAXEL IV ONE (10:00)
[2017-06-28] MEDS: INSULIN REGULAR 100 UNIT/ML SUBCUT SCH ×5 (00:39→23:19)
[2017-06-28] MEDS: PROPOFOL 1,000 MG/100 ML BOTTLE IV SCH ×6 (00:40→21:34)
[2017-06-28] MEDS: SODIUM CHLORIDE 0.9% 1,000 ML IV SCH ×2 (01:40→21:33)
[2017-06-28] MEDS: methylPREDNISolone SOD SUC 40 MG/1 ML VIAL IV SCH ×3 (01:40→16:44)
[2017-06-28] MEDS: ALBUTEROL/IPRATROPIUM 3 ML NEB RESP TX SCH ×6 (03:33→23:27)
[2017-06-28] MEDS: MORPHINE 4 MG/1 ML VIAL IV PRN ×2 (04:26→21:34)
[2017-06-28 04:53] LABS: Basophils % 0.1 % (0.0-0.8); Hematocrit 27.8 VOL% (42.0-52.0); Hemoglobin 8.8 GM/DL (14.0-18.0); Immature Granulocytes % 0.8 %; Immature Granulocytes Absolute 0.11 #; Lymphocytes # 0.8 10*3/uL (1.4-4.0); Lymphocytes % 5.7 % (21.2-54.2); Mean Corpuscular HGB Conc 31.7 GM/DL (32-36); Mean Corpuscular Hemoglobin 27 PG (27-34); Mean Corpuscular Volume 85.8 FL (87-102); Mean Platelet Volume 11.7 FL (9.6-12.0); Monocytes # 0.4 10*3/uL (0.11-0.8); Monocytes % 2.9 % (1.7-12.7); Neutrophils # 12.7 10*3/uL (1.4-7.4); Neutrophils % 90.5 % (38.7-73.9); Platelet Count 236 T/CUMM (130-400); Red Blood Count 3.24 MC/CUMM (3.8-5.5); Red Cell Distribution Width 18.7 % (9.3-17.3)
[2017-06-28 05:29] LABS: Albumin 1.8 G/DL (3.4-5.0); Bilirubin,Total 0.4 MG/DL (0.2-1.0); Calcium 8.6 MG/DL (8.5-10.1); Osmolality,Calculated 287.1 MOS/KG (273-304); Potassium 3.9 MMOL/L (3.5-5.1); Total Protein 6.1 G/DL (6.4-8.3)
[2017-06-28] MEDS: PANTOPRAZOLE 40 MG VIAL IV SCH (09:27)
[2017-06-28] MEDS: FLUCONAZOLE INJ 100 MG in IV BAG 1 EACH IV SCH (09:31)
[2017-06-28] MEDS: GRANISETRON 1 MG/1 ML VIAL IV SCH (09:36)
[2017-06-28] MEDS: ZINC OXIDE PASTE 113 GM TUBE TOP SCH ×2 (09:40→21:34)
[2017-06-29] MEDS: PROPOFOL 1,000 MG/100 ML BOTTLE IV SCH ×5 (00:11→19:55)
[2017-06-29] MEDS: methylPREDNISolone SOD SUC 40 MG/1 ML VIAL IV SCH ×3 (00:11→17:08)
[2017-06-29] MEDS: ALBUTEROL/IPRATROPIUM 3 ML NEB RESP TX SCH ×5 (03:18→19:07)
[2017-06-29 05:12] LABS: ABG Base Excess 6.9 MMOL/L (-2.5-2.5); ABG HCO3 30.8 MMOL/L (20-26); ABG PCO2 48.2 MM HG (35-48); ABG PH 7.434 (7.35-7.45); ABG TCO2 28.9 MMOL/L (23-27); Pt O2 Delivery Device Ventilator
[2017-06-29] MEDS: INSULIN REGULAR 100 UNIT/ML SUBCUT SCH ×4 (05:31→23:14)
[2017-06-29 06:02] LABS: Basophils % 0.1 % (0.0-0.8); Hematocrit 28.6 VOL% (42.0-52.0); Immature Granulocytes % 0.8 %; Immature Granulocytes Absolute 0.14 #; Lymphocytes # 0.3 10*3/uL (1.4-4.0); Lymphocytes % 1.6 % (21.2-54.2); Mean Corpuscular HGB Conc 31.5 GM/DL (32-36); Mean Corpuscular Hemoglobin 27 PG (27-34); Mean Corpuscular Volume 86.7 FL (87-102); Monocytes # 0.2 10*3/uL (0.11-0.8); Monocytes % 1.2 % (1.7-12.7); Neutrophils # 16.5 10*3/uL (1.4-7.4); Neutrophils % 96.3 % (38.7-73.9); Platelet Count 243 T/CUMM (130-400); Red Cell Distribution Width 18.4 % (9.3-17.3); White Blood Count 17.1 T/CUMM (4-12)
[2017-06-29 06:14] LABS: Calcium 8.4 MG/DL (8.5-10.1); Osmolality,Calculated 283.4 MOS/KG (273-304); Potassium 4.3 MMOL/L (3.5-5.1)
[2017-06-29 06:17] LABS: Albumin 1.8 G/DL (3.4-5.0); Bilirubin,Total 0.8 MG/DL (0.2-1.0); Calcium 8.9 MG/DL (8.5-10.1); Osmolality,Calculated 280.5 MOS/KG (273-304); Potassium 4.2 MMOL/L (3.5-5.1); Total Protein 6.3 G/DL (6.4-8.3)
[2017-06-29 06:49] LABS: Hypochromasia 2+; Microcytosis 1+; Target Cells Slight
[2017-06-29] MEDS: FLUCONAZOLE INJ 100 MG in IV BAG 1 EACH IV SCH (09:17)
[2017-06-29] MEDS: ZINC OXIDE PASTE 113 GM TUBE TOP SCH ×2 (09:23→20:03)
[2017-06-29] MEDS: GRANISETRON 1 MG/1 ML VIAL IV SCH (09:27)
[2017-06-29] MEDS: PANTOPRAZOLE 40 MG VIAL IV SCH (09:27)
[2017-06-29] MEDS: SODIUM CHLORIDE 0.9% 1,000 ML IV SCH (19:33)
[2017-06-30] MEDS: ALBUTEROL/IPRATROPIUM 3 ML NEB RESP TX SCH ×7 (00:44→23:11)
[2017-06-30] MEDS: PROPOFOL 1,000 MG/100 ML BOTTLE IV SCH ×6 (01:37→23:05)
[2017-06-30] MEDS: methylPREDNISolone SOD SUC 40 MG/1 ML VIAL IV SCH ×3 (02:29→18:44)
[2017-06-30 05:04] LABS: ABG Base Excess 9.8 MMOL/L (-2.5-2.5); ABG HCO3 33.6 MMOL/L (20-26); ABG Oxygen Saturation 99.8 % (95-100); ABG PCO2 58.3 MM HG (35-48); ABG PH 7.403 (7.35-7.45); ABG TCO2 33.4 MMOL/L (23-27); Allen Test Positive; Pt O2 Delivery Device Ventilator
[2017-06-30 05:18] LABS: Basophils % 0.1 % (0.0-0.8); Hematocrit 29.7 VOL% (42.0-52.0); Hemoglobin 9.3 GM/DL (14.0-18.0); Immature Granulocytes % 0.6 %; Lymphocytes # 0.2 10*3/uL (1.4-4.0); Lymphocytes % 1.1 % (21.2-54.2); Mean Corpuscular HGB Conc 31.3 GM/DL (32-36); Mean Corpuscular Hemoglobin 27 PG (27-34); Mean Corpuscular Volume 87.4 FL (87-102); Mean Platelet Volume 11.7 FL (9.6-12.0); Monocytes # 0.2 10*3/uL (0.11-0.8); Monocytes % 1.3 % (1.7-12.7); NRBC # 0.02 10*3/uL; Neutrophils # 15.4 10*3/uL (1.4-7.4); Neutrophils % 96.9 % (38.7-73.9); Platelet Count 236 T/CUMM (130-400); Red Cell Distribution Width 18.2 % (9.3-17.3); White Blood Count 15.9 T/CUMM (4-12)
[2017-06-30] MEDS: INSULIN REGULAR 100 UNIT/ML SUBCUT SCH ×3 (05:45→18:45)
[2017-06-30 05:56] LABS: Bilirubin,Total 0.9 MG/DL (0.2-1.0); Calcium 8.9 MG/DL (8.5-10.1); Osmolality,Calculated 285.1 MOS/KG (273-304); Potassium 4.5 MMOL/L (3.5-5.1); Total Protein 6.2 G/DL (6.4-8.3)
[2017-06-30 06:46] LABS: Band Neutrophils 1 % (0-10); Lymphocytes 1 % (20-55); Segmented Neutrophils 98 % (50-85); Total Cells Counted 100
[2017-06-30 06:47] LABS: Hypochromasia 2+; Platelet Estimate Adequate; Polychromasia Slight
[2017-06-30] MEDS: PANTOPRAZOLE 40 MG VIAL IV SCH (08:34)
[2017-06-30] MEDS: GRANISETRON 1 MG/1 ML VIAL IV SCH (08:34)
[2017-06-30] MEDS: ZINC OXIDE PASTE 113 GM TUBE TOP SCH ×2 (08:35→21:15)
[2017-06-30] MEDS: FLUCONAZOLE INJ 100 MG in IV BAG 1 EACH IV SCH (08:35)
[2017-06-30] MEDS: SODIUM CHLORIDE 0.9% 1,000 ML IV SCH (18:44)
[2017-07-01] MEDS: INSULIN REGULAR 100 UNIT/ML SUBCUT SCH ×5 (00:05→23:44)
[2017-07-01] MEDS: methylPREDNISolone SOD SUC 40 MG/1 ML VIAL IV SCH ×3 (00:05→17:49)
[2017-07-01] MEDS: ALBUTEROL/IPRATROPIUM 3 ML NEB RESP TX SCH ×6 (03:50→23:02)
[2017-07-01] MEDS: PROPOFOL 1,000 MG/100 ML BOTTLE IV SCH ×5 (05:35→22:58)
[2017-07-01 06:38] LABS: Basophils % 0.1 % (0.0-0.8); Eosinophils % 0.1 % (0.00-10.9); Hematocrit 31.1 VOL% (42.0-52.0); Hemoglobin 10.1 GM/DL (14.0-18.0); Immature Granulocytes % 0.8 %; Immature Granulocytes Absolute 0.11 #; Lymphocytes # 0.1 10*3/uL (1.4-4.0); Lymphocytes % 0.9 % (21.2-54.2); Mean Corpuscular HGB Conc 32.5 GM/DL (32-36); Mean Corpuscular Hemoglobin 28 PG (27-34); Mean Corpuscular Volume 85.9 FL (87-102); Mean Platelet Volume 12.4 FL (9.6-12.0); Monocytes # 0.2 10*3/uL (0.11-0.8); Monocytes % 1.2 % (1.7-12.7); Neutrophils # 13.7 10*3/uL (1.4-7.4); Neutrophils % 96.9 % (38.7-73.9); Platelet Count 179 T/CUMM (130-400); Red Blood Count 3.62 MC/CUMM (3.8-5.5); Red Cell Distribution Width 18.5 % (9.3-17.3); White Blood Count 14.1 T/CUMM (4-12)
[2017-07-01 07:01] LABS: Band Neutrophils 1 % (0-10); Lymphocytes 3 % (20-55); Segmented Neutrophils 95 % (50-85); Total Cells Counted 100
[2017-07-01 07:03] LABS: Target Cells Few
[2017-07-01 07:04] LABS: Hypochromasia 1+; Polychromasia Few
[2017-07-01 07:05] LABS: Microcytosis Slight
[2017-07-01] MEDS: SODIUM CHLORIDE 0.9% 1,000 ML IV SCH ×2 (07:09→15:00)
[2017-07-01] MEDS: FLUCONAZOLE INJ 100 MG in IV BAG 1 EACH IV SCH (08:02)
[2017-07-01] MEDS: GRANISETRON 1 MG/1 ML VIAL IV SCH ×2 (08:02→09:18)
[2017-07-01] MEDS: PANTOPRAZOLE 40 MG VIAL IV SCH (08:03)
[2017-07-01] MEDS ORDERED: DEXAMETHASONE INJ 20 MG in SODIUM CHLORIDE 0.9% 50 ML IV ONE (08:10)
[2017-07-01 08:19] LABS: Prealbumin 23.6 MG/DL (20-40)
[2017-07-01] MEDS: ZINC OXIDE PASTE 113 GM TUBE TOP SCH ×2 (09:18→22:13)
[2017-07-01 09:57] LABS: Potassium 4.3 MMOL/L (3.5-5.1); Sodium 139 MMOL/L (136-145)
[2017-07-01 09:59] LABS: Calcium 8.8 MG/DL (8.5-10.1)
[2017-07-01 10:00] LABS: Albumin 1.8 G/DL (3.4-5.0); Blood Urea Nitrogen 18 MG/DL (7-18); Glucose 136 MG/DL (74-106); Osmolality,Calculated 280.5 MOS/KG (273-304)
[2017-07-01 10:03] LABS: Alanine Aminotransferase 164 U/L (16-61); Aspartate Amino Transferase 23 U/L (0-37)
[2017-07-01 10:05] LABS: Bilirubin,Total < 0.39 MG/DL (0.2-1.0); Total Protein 5.9 G/DL (6.4-8.3)
[2017-07-01 10:06] LABS: Alkaline Phosphatase 142 U/L (45-117)
[2017-07-01] MEDS: fentaNYL INJ 1,250 MCG in SODIUM CHLORIDE 0.9% 225 ML IV PRN ×2 (16:35→22:59)
[2017-07-01] MEDS: PHENYLEPHRINE DRIP 40 MG/250 ML PREMIX IV PRN (21:37)
[2017-07-02] MEDS ORDERED: MIDAZOLAM 10 MG/2 ML VIAL ONE (01:42)
[2017-07-02] MEDS ORDERED: fentaNYL 100 MCG/2 ML VIAL IV ONE (01:44)
[2017-07-02] MEDS ORDERED: MIDAZOLAM 2 MG/2 ML VIAL IV ONE (01:44)
[2017-07-02] MEDS: ALBUTEROL/IPRATROPIUM 3 ML NEB RESP TX SCH ×6 (02:48→23:44)
[2017-07-02] MEDS: methylPREDNISolone SOD SUC 40 MG/1 ML VIAL IV SCH ×3 (02:49→17:30)
[2017-07-02 05:12] LABS: ABG Base Excess 5.5 MMOL/L (-2.5-2.5); ABG HCO3 29.4 MMOL/L (20-26); ABG Oxygen Saturation 97.4 % (95-100); ABG PCO2 66.4 MM HG (35-48); ABG PH 7.313 (7.35-7.45); ABG TCO2 30.9 MMOL/L (23-27)
[2017-07-02] MEDS: fentaNYL INJ 1,250 MCG in SODIUM CHLORIDE 0.9% 225 ML IV PRN ×3 (05:32→19:20)
[2017-07-02] MEDS: INSULIN REGULAR 100 UNIT/ML SUBCUT SCH ×4 (05:33→23:42)
[2017-07-02] MEDS: SODIUM CHLORIDE 0.9% 1,000 ML IV SCH ×2 (05:34→12:37)
[2017-07-02] MEDS: PROPOFOL 1,000 MG/100 ML BOTTLE IV SCH ×4 (06:49→20:22)
[2017-07-02 06:59] LABS: Basophils % 0.1 % (0.0-0.8); Hematocrit 33.8 VOL% (42.0-52.0); Hemoglobin 10.2 GM/DL (14.0-18.0); Immature Granulocytes % 1.3 %; Immature Granulocytes Absolute 0.18 #; Lymphocytes # 0.3 10*3/uL (1.4-4.0); Lymphocytes % 1.9 % (21.2-54.2); Mean Corpuscular HGB Conc 30.2 GM/DL (32-36); Mean Corpuscular Hemoglobin 28 PG (27-34); Mean Corpuscular Volume 91.1 FL (87-102); Mean Platelet Volume 12.5 FL (9.6-12.0); Monocytes # 0.2 10*3/uL (0.11-0.8); Monocytes % 1.7 % (1.7-12.7); Neutrophils # 13.1 10*3/uL (1.4-7.4); Platelet Count 206 T/CUMM (130-400); Red Blood Count 3.71 MC/CUMM (3.8-5.5); Red Cell Distribution Width 18.6 % (9.3-17.3); White Blood Count 13.8 T/CUMM (4-12)
[2017-07-02 07:09] LABS: Lymphocytes 1 % (20-55); Platelet Estimate Adequate; Segmented Neutrophils 94 % (50-85); Total Cells Counted 100
[2017-07-02 07:10] LABS: Giant Platelets Few; Hypochromasia 1+; Microcytosis Slight; Ovalocytes Slight
[2017-07-02 08:35] LABS: Alanine Aminotransferase 147 U/L (16-61); Alkaline Phosphatase 155 U/L (45-117); Aspartate Amino Transferase 32 U/L (0-37); Calcium 8.7 MG/DL (8.5-10.1)
[2017-07-02 08:36] LABS: Albumin 1.9 G/DL (3.4-5.0); Bilirubin,Total < 0.39 MG/DL (0.2-1.0); Blood Urea Nitrogen 19 MG/DL (7-18); Glucose 130 MG/DL (74-106); Osmolality,Calculated 280.5 MOS/KG (273-304); Potassium 4.6 MMOL/L (3.5-5.1); Sodium 139 MMOL/L (136-145); Total Protein 6.5 G/DL (6.4-8.3)
[2017-07-02] MEDS: ZINC OXIDE PASTE 113 GM TUBE TOP SCH ×2 (09:09→20:22)
[2017-07-02] MEDS: GRANISETRON 1 MG/1 ML VIAL IV SCH ×2 (09:09→09:10)
[2017-07-02] MEDS: FLUCONAZOLE INJ 100 MG in IV BAG 1 EACH IV SCH (09:09)
[2017-07-02] MEDS: PANTOPRAZOLE 40 MG VIAL IV SCH (09:10)
[2017-07-02] MEDS: PHENYLEPHRINE DRIP 40 MG/250 ML PREMIX IV PRN (12:29)
[2017-07-03] MEDS: SODIUM CHLORIDE 0.9% 1,000 ML IV SCH ×3 (00:36→19:27)
[2017-07-03] MEDS: methylPREDNISolone SOD SUC 40 MG/1 ML VIAL IV SCH ×3 (00:51→17:25)
[2017-07-03] MEDS: fentaNYL INJ 1,250 MCG in SODIUM CHLORIDE 0.9% 225 ML IV PRN ×4 (01:34→18:30)
[2017-07-03] MEDS: PROPOFOL 1,000 MG/100 ML BOTTLE IV SCH ×5 (01:37→23:45)
[2017-07-03 03:07] LABS: Basophils % 0.1 % (0.0-0.8); Hematocrit 28.5 VOL% (42.0-52.0); Hemoglobin 8.7 GM/DL (14.0-18.0); Immature Granulocytes % 0.6 %; Immature Granulocytes Absolute 0.07 #; Lymphocytes # 0.4 10*3/uL (1.4-4.0); Lymphocytes % 3.2 % (21.2-54.2); Mean Corpuscular HGB Conc 30.5 GM/DL (32-36); Mean Corpuscular Hemoglobin 27 PG (27-34); Mean Platelet Volume 12.1 FL (9.6-12.0); Monocytes # 0.2 10*3/uL (0.11-0.8); Monocytes % 1.6 % (1.7-12.7); Neutrophils # 10.7 10*3/uL (1.4-7.4); Neutrophils % 94.5 % (38.7-73.9); Platelet Count 189 T/CUMM (130-400); Red Blood Count 3.24 MC/CUMM (3.8-5.5); Red Cell Distribution Width 18.1 % (9.3-17.3); White Blood Count 11.3 T/CUMM (4-12)
[2017-07-03 03:43] LABS: Alanine Aminotransferase 163 U/L (16-61); Albumin 1.7 G/DL (3.4-5.0); Alkaline Phosphatase 138 U/L (45-117); Aspartate Amino Transferase 39 U/L (0-37); Bilirubin,Total < 0.39 MG/DL (0.2-1.0); Blood Urea Nitrogen 18 MG/DL (7-18); Calcium 7.9 MG/DL (8.5-10.1); Glucose 154 MG/DL (74-106); Osmolality,Calculated 285.3 MOS/KG (273-304); Potassium 4.4 MMOL/L (3.5-5.1); Sodium 141 MMOL/L (136-145); Total Protein 5.3 G/DL (6.4-8.3)
[2017-07-03] MEDS: ALBUTEROL/IPRATROPIUM 3 ML NEB RESP TX SCH ×6 (03:43→23:49)
[2017-07-03 03:49] LABS: Band Neutrophils 7 % (0-10); Lymphocytes 12 % (20-55); Platelet Estimate Normal; Segmented Neutrophils 72 % (50-85); Total Cells Counted 100
[2017-07-03 04:00] LABS: ABG Base Excess 6.1 MMOL/L (-2.5-2.5); ABG HCO3 33.1 MMOL/L (20-26); ABG Oxygen Saturation 97.3 % (95-100); ABG PCO2 60.7 MM HG (35-48); ABG PH 7.354 (7.35-7.45); ABG PO2 98.5 MM HG (80-95); ABG TCO2 34.9 MMOL/L (23-27)
[2017-07-03] MEDS: PHENYLEPHRINE DRIP 40 MG/250 ML PREMIX IV PRN ×2 (05:02→18:31)
[2017-07-03 05:17] LABS: Calcium 7.9 MG/DL (8.5-10.1); Osmolality,Calculated 285.3 MOS/KG (273-304); Potassium 4.5 MMOL/L (3.5-5.1)
[2017-07-03] MEDS: INSULIN REGULAR 100 UNIT/ML SUBCUT SCH ×3 (05:55→18:25)
[2017-07-03] MEDS: FLUCONAZOLE INJ 100 MG in IV BAG 1 EACH IV SCH (10:28)
[2017-07-03] MEDS: PANTOPRAZOLE 40 MG VIAL IV SCH (10:29)
[2017-07-03] MEDS: GRANISETRON 1 MG/1 ML VIAL IV SCH ×2 (10:29)
[2017-07-03] MEDS: ZINC OXIDE PASTE 113 GM TUBE TOP SCH ×2 (11:01→21:59)
[2017-07-04] MEDS: fentaNYL INJ 1,250 MCG in SODIUM CHLORIDE 0.9% 225 ML IV PRN ×5 (01:01→23:38)
[2017-07-04] MEDS: methylPREDNISolone SOD SUC 40 MG/1 ML VIAL IV SCH ×3 (01:06→16:45)
[2017-07-04] MEDS: INSULIN REGULAR 100 UNIT/ML SUBCUT SCH ×5 (01:06→23:49)
[2017-07-04] MEDS: PHENYLEPHRINE DRIP 40 MG/250 ML PREMIX IV PRN ×3 (01:06→16:26)
[2017-07-04] MEDS: PROPOFOL 1,000 MG/100 ML BOTTLE IV SCH ×5 (04:09→20:29)
[2017-07-04] MEDS: ALBUTEROL/IPRATROPIUM 3 ML NEB RESP TX SCH ×6 (04:12→23:29)
[2017-07-04 04:17] LABS: ABG Base Excess 7.5 MMOL/L (-2.5-2.5); ABG HCO3 31.2 MMOL/L (20-26); ABG Oxygen Saturation 96.2 % (95-100); ABG PCO2 63.2 MM HG (35-48); ABG PO2 86.2 MM HG (80-95); ABG TCO2 32.1 MMOL/L (23-27); Allen Test Positive; Pt O2 Delivery Device Ventilator
[2017-07-04 06:14] LABS: Eosinophils % 0.3 % (0.00-10.9); Hematocrit 28.7 VOL% (42.0-52.0); Hemoglobin 8.9 GM/DL (14.0-18.0); Immature Granulocytes % 0.6 %; Immature Granulocytes Absolute 0.06 #; Lymphocytes # 0.8 10*3/uL (1.4-4.0); Lymphocytes % 7.3 % (21.2-54.2); Mean Corpuscular Hemoglobin 27 PG (27-34); Mean Corpuscular Volume 88.3 FL (87-102); Mean Platelet Volume 12.1 FL (9.6-12.0); Monocytes # 0.1 10*3/uL (0.11-0.8); Monocytes % 1.1 % (1.7-12.7); Neutrophils # 9.5 10*3/uL (1.4-7.4); Neutrophils % 90.7 % (38.7-73.9); Platelet Count 152 T/CUMM (130-400); Red Blood Count 3.25 MC/CUMM (3.8-5.5); Red Cell Distribution Width 18.2 % (9.3-17.3); White Blood Count 10.4 T/CUMM (4-12)
[2017-07-04 06:38] LABS: Band Neutrophils 1 % (0-10); Eosinophils 1 % (0-10); Hypochromasia 1+; Lymphocytes 5 % (20-55); Metamyelocytes 1 %; Myelocytes 1 %; Segmented Neutrophils 90 % (50-85); Total Cells Counted 100
[2017-07-04 06:39] LABS: Microcytosis 1+; Ovalocytes Slight; Platelet Estimate Adequate
[2017-07-04 06:48] LABS: Prealbumin 20.2 MG/DL (20-40)
[2017-07-04 06:49] LABS: Albumin 1.8 G/DL (3.4-5.0); Bilirubin,Total 0.5 MG/DL (0.2-1.0); Calcium 8.2 MG/DL (8.5-10.1); Osmolality,Calculated 279.4 MOS/KG (273-304); Potassium 4.3 MMOL/L (3.5-5.1); Total Protein 5.5 G/DL (6.4-8.3)
[2017-07-04] MEDS: PANTOPRAZOLE 40 MG VIAL IV SCH (08:32)
[2017-07-04] MEDS: FLUCONAZOLE INJ 100 MG in IV BAG 1 EACH IV SCH (08:32)
[2017-07-04] MEDS: GRANISETRON 1 MG/1 ML VIAL IV SCH ×2 (08:33→13:06)
[2017-07-04] MEDS: SODIUM CHLORIDE 0.9% 1,000 ML IV SCH ×2 (08:49→21:37)
[2017-07-04] MEDS: ZINC OXIDE PASTE 113 GM TUBE TOP SCH ×2 (13:05→21:39)
[2017-07-05] MEDS: methylPREDNISolone SOD SUC 40 MG/1 ML VIAL IV SCH ×3 (00:02→17:54)
[2017-07-05] MEDS: PROPOFOL 1,000 MG/100 ML BOTTLE IV SCH ×5 (00:59→21:12)
[2017-07-05] MEDS: PHENYLEPHRINE DRIP 40 MG/250 ML PREMIX IV PRN ×3 (00:59→16:40)
[2017-07-05] MEDS: ALBUTEROL/IPRATROPIUM 3 ML NEB RESP TX SCH ×6 (03:50→23:55)
[2017-07-05 04:48] LABS: Allen Test Positive; Pt O2 Delivery Device Ventilator
[2017-07-05 04:52] LABS: ABG Base Excess 9.4 MMOL/L (-2.5-2.5); ABG HCO3 33.2 MMOL/L (20-26); ABG Oxygen Saturation 99.3 % (95-100); ABG PCO2 55.4 MM HG (35-48); ABG PH 7.416 (7.35-7.45); ABG TCO2 32.5 MMOL/L (23-27)
[2017-07-05] MEDS: INSULIN REGULAR 100 UNIT/ML SUBCUT SCH ×3 (05:14→18:33)
[2017-07-05] MEDS: fentaNYL INJ 1,250 MCG in SODIUM CHLORIDE 0.9% 225 ML IV PRN ×4 (05:41→23:45)
[2017-07-05 07:15] LABS: Basophils % 0.1 % (0.0-0.8); Hematocrit 28.7 VOL% (42.0-52.0); Hemoglobin 8.8 GM/DL (14.0-18.0); Immature Granulocytes Absolute 0.07 #; Lymphocytes # 0.3 10*3/uL (1.4-4.0); Lymphocytes % 3.7 % (21.2-54.2); Mean Corpuscular HGB Conc 30.7 GM/DL (32-36); Mean Corpuscular Hemoglobin 27 PG (27-34); Mean Corpuscular Volume 88.3 FL (87-102); Monocytes # 0.1 10*3/uL (0.11-0.8); Neutrophils # 6.6 10*3/uL (1.4-7.4); Neutrophils % 94.2 % (38.7-73.9); Platelet Count 148 T/CUMM (130-400); Red Blood Count 3.25 MC/CUMM (3.8-5.5); Red Cell Distribution Width 18.2 % (9.3-17.3)
[2017-07-05] MEDS ORDERED: LIDOCAINE 1% 20 ML VIAL MISC INJ ONE (07:30)
[2017-07-05] MEDS ORDERED: MIDAZOLAM 2 MG/2 ML VIAL IV ONE (07:30)
[2017-07-05 07:48] LABS: Alanine Aminotransferase 102 U/L (16-61); Albumin 1.7 G/DL (3.4-5.0); Alkaline Phosphatase 132 U/L (45-117); Aspartate Amino Transferase 19 U/L (0-37); Bilirubin,Total < 0.39 MG/DL (0.2-1.0); Blood Urea Nitrogen 13 MG/DL (7-18); Calcium 8.5 MG/DL (8.5-10.1); Glucose 131 MG/DL (74-106); Osmolality,Calculated 276.7 MOS/KG (273-304); Potassium 4.2 MMOL/L (3.5-5.1); Sodium 138 MMOL/L (136-145); Total Protein 5.9 G/DL (6.4-8.3)
[2017-07-05 07:58] LABS: Calcium 8.4 MG/DL (8.5-10.1)
[2017-07-05 07:59] LABS: Osmolality,Calculated 278.5 MOS/KG (273-304); Potassium 4.2 MMOL/L (3.5-5.1)
[2017-07-05 08:13] LABS: Band Neutrophils 3 % (0-10); Hypochromasia 1+; Lymphocytes 2 % (20-55); Microcytosis 1+; Segmented Neutrophils 94 % (50-85); Total Cells Counted 100
[2017-07-05] MEDS: PANTOPRAZOLE 40 MG VIAL IV SCH (08:21)
[2017-07-05] MEDS: GRANISETRON 1 MG/1 ML VIAL IV SCH ×2 (08:22→09:11)
[2017-07-05] MEDS: SODIUM CHLORIDE 0.9% 1,000 ML IV SCH (08:23)
[2017-07-05] MEDS: ZINC OXIDE PASTE 113 GM TUBE TOP SCH ×2 (09:11→21:37)
[2017-07-05] MEDS: FLUCONAZOLE INJ 100 MG in IV BAG 1 EACH IV SCH (09:11)
[2017-07-05] MEDS: MAGNESIUM SULF RIDER 2 GM in PREMIX 1 EACH IV PRN (10:00)
[2017-07-06] MEDS: SODIUM CHLORIDE 0.9% 1,000 ML IV SCH ×3 (00:24→06:59)
[2017-07-06] MEDS: INSULIN REGULAR 100 UNIT/ML SUBCUT SCH ×4 (00:35→18:45)
[2017-07-06] MEDS: methylPREDNISolone SOD SUC 40 MG/1 ML VIAL IV SCH ×3 (00:35→17:12)
[2017-07-06] MEDS: PHENYLEPHRINE DRIP 40 MG/250 ML PREMIX IV PRN (01:16)
[2017-07-06] MEDS: PROPOFOL 1,000 MG/100 ML BOTTLE IV SCH ×4 (01:20→20:10)
[2017-07-06 02:59] LABS: ABG Base Excess 7.5 MMOL/L (-2.5-2.5); ABG HCO3 31.3 MMOL/L (20-26); ABG Oxygen Saturation 99.3 % (95-100); ABG PCO2 48.6 MM HG (35-48); ABG PH 7.437 (7.35-7.45); Allen Test Positive; Pt O2 Delivery Device Ventilator
[2017-07-06 03:42] LABS: Basophils % 0.2 % (0.0-0.8); Eosinophils % 0.2 % (0.00-10.9); Hemoglobin 9.3 GM/DL (14.0-18.0); Immature Granulocytes % 0.5 %; Immature Granulocytes Absolute 0.03 #; Lymphocytes # 0.2 10*3/uL (1.4-4.0); Lymphocytes % 3.3 % (21.2-54.2); Mean Corpuscular HGB Conc 32.1 GM/DL (32-36); Mean Corpuscular Hemoglobin 27 PG (27-34); Mean Corpuscular Volume 85.5 FL (87-102); Mean Platelet Volume 11.7 FL (9.6-12.0); Monocytes # 0.2 10*3/uL (0.11-0.8); Monocytes % 2.3 % (1.7-12.7); Neutrophils # 6.2 10*3/uL (1.4-7.4); Neutrophils % 93.5 % (38.7-73.9); Platelet Count 162 T/CUMM (130-400); Red Blood Count 3.39 MC/CUMM (3.8-5.5); Red Cell Distribution Width 18.8 % (9.3-17.3); White Blood Count 6.6 T/CUMM (4-12)
[2017-07-06] MEDS: ALBUTEROL/IPRATROPIUM 3 ML NEB RESP TX SCH ×5 (04:02→19:30)
[2017-07-06 04:09] LABS: Albumin 1.8 G/DL (3.4-5.0); Bilirubin,Total 0.8 MG/DL (0.2-1.0); Calcium 7.9 MG/DL (8.5-10.1); Osmolality,Calculated 278.5 MOS/KG (273-304); Potassium 4.3 MMOL/L (3.5-5.1); Total Protein 5.8 G/DL (6.4-8.3)
[2017-07-06 04:30] LABS: Band Neutrophils 5 % (0-10); Lymphocytes 3 % (20-55); Segmented Neutrophils 91 % (50-85); Total Cells Counted 100
[2017-07-06 04:31] LABS: Hypochromasia 1+; Platelet Estimate Normal
[2017-07-06] MEDS: fentaNYL INJ 1,250 MCG in SODIUM CHLORIDE 0.9% 225 ML IV PRN ×3 (06:53→20:10)
[2017-07-06] MEDS: GRANISETRON 1 MG/1 ML VIAL IV SCH ×2 (08:02→12:25)
[2017-07-06] MEDS: PANTOPRAZOLE 40 MG VIAL IV SCH (08:03)
[2017-07-06] MEDS: FLUCONAZOLE INJ 100 MG in IV BAG 1 EACH IV SCH (08:04)
[2017-07-06] MEDS: ZINC OXIDE PASTE 113 GM TUBE TOP SCH ×2 (12:24→20:47)
[2017-07-07] MEDS: ALBUTEROL/IPRATROPIUM 3 ML NEB RESP TX SCH ×6 (00:02→19:18)
[2017-07-07] MEDS: INSULIN REGULAR 100 UNIT/ML SUBCUT SCH ×4 (00:17→18:58)
[2017-07-07] MEDS: methylPREDNISolone SOD SUC 40 MG/1 ML VIAL IV SCH ×3 (00:18→17:30)
[2017-07-07] MEDS: fentaNYL INJ 1,250 MCG in SODIUM CHLORIDE 0.9% 225 ML IV PRN ×5 (02:50→22:59)
[2017-07-07 03:24] LABS: ABG HCO3 33.7 MMOL/L (20-26); ABG Oxygen Saturation 98.2 % (95-100); ABG PCO2 47.1 MM HG (35-48); ABG PH 7.472 (7.35-7.45); ABG PO2 112.7 MM HG (80-95); ABG TCO2 35.1 MMOL/L (23-27); Allen Test Positive; Pt O2 Delivery Device Ventilator
[2017-07-07] MEDS: PROPOFOL 1,000 MG/100 ML BOTTLE IV SCH ×5 (04:39→22:56)
[2017-07-07 04:55] LABS: Basophils % 0.2 % (0.0-0.8); Hematocrit 27.6 VOL% (42.0-52.0); Hemoglobin 8.7 GM/DL (14.0-18.0); Immature Granulocytes % 0.7 %; Immature Granulocytes Absolute 0.04 #; Lymphocytes # 0.3 10*3/uL (1.4-4.0); Mean Corpuscular HGB Conc 31.5 GM/DL (32-36); Mean Corpuscular Hemoglobin 28 PG (27-34); Mean Corpuscular Volume 87.9 FL (87-102); Mean Platelet Volume 11.8 FL (9.6-12.0); Monocytes # 0.2 10*3/uL (0.11-0.8); Monocytes % 3.1 % (1.7-12.7); Neutrophils # 5.3 10*3/uL (1.4-7.4); Platelet Count 140 T/CUMM (130-400); Red Blood Count 3.14 MC/CUMM (3.8-5.5); Red Cell Distribution Width 18.9 % (9.3-17.3); White Blood Count 5.8 T/CUMM (4-12)
[2017-07-07 05:19] LABS: Calcium 8.3 MG/DL (8.5-10.1); Osmolality,Calculated 276.8 MOS/KG (273-304); Potassium 4.2 MMOL/L (3.5-5.1)
[2017-07-07 05:26] LABS: Band Neutrophils 35 % (0-10); Lymphocytes 3 % (20-55); Segmented Neutrophils 61 % (50-85); Total Cells Counted 100
[2017-07-07] MEDS: SODIUM CHLORIDE 0.9% 1,000 ML IV SCH ×2 (05:42→23:49)
[2017-07-07] MEDS: GRANISETRON 1 MG/1 ML VIAL IV SCH ×2 (09:05→11:50)
[2017-07-07] MEDS: LACTULOSE 20 GM/30 ML UDCUP PO PRN (09:05)
[2017-07-07] MEDS: PANTOPRAZOLE 40 MG VIAL IV SCH (09:06)
[2017-07-07] MEDS: FLUCONAZOLE INJ 100 MG in IV BAG 1 EACH IV SCH (09:06)
[2017-07-07] MEDS: ZINC OXIDE PASTE 113 GM TUBE TOP SCH ×2 (11:50→21:25)
[2017-07-08] MEDS: ALBUTEROL/IPRATROPIUM 3 ML NEB RESP TX SCH ×7 (00:08→23:45)
[2017-07-08] MEDS: PHENYLEPHRINE DRIP 40 MG/250 ML PREMIX IV PRN (01:08)
[2017-07-08 03:52] LABS: ABG Base Excess 7.4 MMOL/L (-2.5-2.5); ABG HCO3 31.2 MMOL/L (20-26); ABG Oxygen Saturation 99.4 % (95-100); ABG PCO2 43.3 MM HG (35-48); ABG PH 7.473 (7.35-7.45); ABG TCO2 29.6 MMOL/L (23-27)
[2017-07-08] MEDS: fentaNYL INJ 1,250 MCG in SODIUM CHLORIDE 0.9% 225 ML IV PRN (04:11)
[2017-07-08 04:27] LABS: Hematocrit 25.8 VOL% (42.0-52.0); Hemoglobin 7.8 GM/DL (14.0-18.0); Immature Granulocytes % 0.5 %; Immature Granulocytes Absolute 0.03 #; Lymphocytes # 0.2 10*3/uL (1.4-4.0); Lymphocytes % 3.9 % (21.2-54.2); Mean Corpuscular HGB Conc 30.2 GM/DL (32-36); Mean Corpuscular Hemoglobin 27 PG (27-34); Mean Corpuscular Volume 88.7 FL (87-102); Mean Platelet Volume 11.6 FL (9.6-12.0); Monocytes # 0.2 10*3/uL (0.11-0.8); Monocytes % 3.6 % (1.7-12.7); Neutrophils # 5.4 10*3/uL (1.4-7.4); Platelet Count 124 T/CUMM (130-400); Red Blood Count 2.91 MC/CUMM (3.8-5.5); Red Cell Distribution Width 18.6 % (9.3-17.3); White Blood Count 5.9 T/CUMM (4-12)
[2017-07-08] MEDS: SODIUM CHLORIDE 0.9% 1,000 ML IV SCH ×2 (04:49→20:20)
[2017-07-08] MEDS: PROPOFOL 1,000 MG/100 ML BOTTLE IV SCH (04:50)
[2017-07-08 04:52] LABS: Calcium 8.2 MG/DL (8.5-10.1); Osmolality,Calculated 281.4 MOS/KG (273-304); Potassium 4.1 MMOL/L (3.5-5.1)
[2017-07-08 05:09] LABS: Band Neutrophils 4 % (0-10); Lymphocytes 4 % (20-55); Prealbumin 19.2 MG/DL (20-40); Segmented Neutrophils 87 % (50-85); Total Cells Counted 100
[2017-07-08 05:10] LABS: Hypochromasia 1+; Microcytosis 1+; Platelet Estimate Adequate; Target Cells Slight
[2017-07-08] MEDS: MAGNESIUM SULF RIDER 2 GM in PREMIX 1 EACH IV PRN (05:48)
[2017-07-08] MEDS: INSULIN REGULAR 100 UNIT/ML SUBCUT SCH ×4 (06:36→18:18)
[2017-07-08] MEDS ORDERED: SODIUM CHLORIDE 0.9% 1,000 ML IV PRN (07:36)
[2017-07-08] MEDS: methylPREDNISolone SOD SUC 40 MG/1 ML VIAL IV SCH ×3 (08:50→17:36)
[2017-07-08] MEDS: GRANISETRON 1 MG/1 ML VIAL IV SCH (08:51)
[2017-07-08] MEDS: PANTOPRAZOLE 40 MG VIAL IV SCH (08:51)
[2017-07-08] MEDS: ZINC OXIDE PASTE 113 GM TUBE TOP SCH ×2 (08:51→20:21)
[2017-07-08] MEDS: FLUCONAZOLE INJ 100 MG in IV BAG 1 EACH IV SCH (08:51)
[2017-07-08 10:22] LABS: ABG Base Excess 7.8 MMOL/L (-2.5-2.5); ABG HCO3 31.6 MMOL/L (20-26); ABG Oxygen Saturation 94.8 % (95-100); ABG PCO2 47.8 MM HG (35-48); ABG PH 7.447 (7.35-7.45); ABG PO2 70.5 MM HG (80-95); ABG TCO2 30.1 MMOL/L (23-27); Allen Test Positive
[2017-07-08] MEDS: LORazepam 2 MG/1 ML VIAL IV PRN ×3 (11:18→20:00)
[2017-07-08] MEDS: METOPROLOL TARTRATE 5 MG/5 ML VIAL IV PRN (17:35)
[2017-07-09] MEDS: INSULIN REGULAR 100 UNIT/ML SUBCUT SCH ×5 (00:25→23:28)
[2017-07-09] MEDS: methylPREDNISolone SOD SUC 40 MG/1 ML VIAL IV SCH ×3 (00:28→17:56)
[2017-07-09] MEDS: LORazepam 2 MG/1 ML VIAL IV PRN ×2 (01:05→19:18)
[2017-07-09] MEDS: METOPROLOL TARTRATE 5 MG/5 ML VIAL IV PRN ×3 (01:09→17:57)
[2017-07-09] MEDS: ALBUTEROL/IPRATROPIUM 3 ML NEB RESP TX SCH ×6 (03:00→23:48)
[2017-07-09] MEDS: SODIUM CHLORIDE 0.9% 1,000 ML IV SCH ×2 (03:54→17:56)
[2017-07-09 05:19] LABS: Basophils % 0.2 % (0.0-0.8); Hematocrit 36.5 VOL% (42.0-52.0); Immature Granulocytes % 0.7 %; Immature Granulocytes Absolute 0.04 #; Lymphocytes # 0.4 10*3/uL (1.4-4.0); Lymphocytes % 5.8 % (21.2-54.2); Mean Corpuscular HGB Conc 33.2 GM/DL (32-36); Mean Corpuscular Hemoglobin 28 PG (27-34); Mean Corpuscular Volume 84.1 FL (87-102); Monocytes # 0.2 10*3/uL (0.11-0.8); Neutrophils # 5.4 10*3/uL (1.4-7.4); Neutrophils % 89.3 % (38.7-73.9); Platelet Count 126 T/CUMM (130-400); Red Blood Count 4.34 MC/CUMM (3.8-5.5); Red Cell Distribution Width 18.3 % (9.3-17.3)
[2017-07-09 05:23] LABS: Hemoglobin 12.1 GM/DL (14.0-18.0)
[2017-07-09 05:48] LABS: Band Neutrophils 6 % (0-10); Hypochromasia 1+; Lymphocytes 2 % (20-55); Platelet Estimate Normal; Segmented Neutrophils 88 % (50-85); Total Cells Counted 100
[2017-07-09 05:49] LABS: Microcytosis Slight
[2017-07-09 05:55] LABS: Bilirubin,Total 0.5 MG/DL (0.2-1.0); Calcium 8.2 MG/DL (8.5-10.1); Total Protein 5.8 G/DL (6.4-8.3)
[2017-07-09] MEDS: PANTOPRAZOLE 40 MG VIAL IV SCH (08:39)
[2017-07-09] MEDS: GRANISETRON 1 MG/1 ML VIAL IV SCH (08:44)
[2017-07-09] MEDS: FLUCONAZOLE INJ 100 MG in IV BAG 1 EACH IV SCH (08:48)
[2017-07-09] MEDS ORDERED: GRANISETRON 1 MG/1 ML VIAL IV SCH (09:00)
[2017-07-09] MEDS: ZINC OXIDE PASTE 113 GM TUBE TOP SCH ×2 (10:05→20:19)
[2017-07-09] MEDS ORDERED: FUROSEMIDE 20 MG/2 ML VIAL IV ONE (20:00)
[2017-07-10] MEDS: methylPREDNISolone SOD SUC 40 MG/1 ML VIAL IV SCH ×3 (00:25→16:46)
[2017-07-10] MEDS: METOPROLOL TARTRATE 5 MG/5 ML VIAL IV PRN (00:27)
[2017-07-10] MEDS: LORazepam 2 MG/1 ML VIAL IV PRN (00:33)
[2017-07-10] MEDS: ALBUTEROL/IPRATROPIUM 3 ML NEB RESP TX SCH ×5 (03:10→22:48)
[2017-07-10 04:49] LABS: Basophils % 0.2 % (0.0-0.8); Hematocrit 39.5 VOL% (42.0-52.0); Hemoglobin 13.1 GM/DL (14.0-18.0); Immature Granulocytes % 0.8 %; Immature Granulocytes Absolute 0.05 #; Lymphocytes # 0.4 10*3/uL (1.4-4.0); Lymphocytes % 5.8 % (21.2-54.2); Mean Corpuscular HGB Conc 33.2 GM/DL (32-36); Mean Corpuscular Hemoglobin 28 PG (27-34); Mean Corpuscular Volume 84.6 FL (87-102); Mean Platelet Volume 10.9 FL (9.6-12.0); Monocytes # 0.2 10*3/uL (0.11-0.8); Monocytes % 3.5 % (1.7-12.7); Neutrophils # 5.9 10*3/uL (1.4-7.4); Neutrophils % 89.7 % (38.7-73.9); Platelet Count 139 T/CUMM (130-400); Red Blood Count 4.67 MC/CUMM (3.8-5.5); Red Cell Distribution Width 18.2 % (9.3-17.3); White Blood Count 6.6 T/CUMM (4-12)
[2017-07-10 05:27] LABS: Bilirubin,Total 0.8 MG/DL (0.2-1.0); Calcium 8.7 MG/DL (8.5-10.1); Osmolality,Calculated 271.1 MOS/KG (273-304); Potassium 3.9 MMOL/L (3.5-5.1); Total Protein 6.1 G/DL (6.4-8.3)
[2017-07-10] MEDS: INSULIN REGULAR 100 UNIT/ML SUBCUT SCH ×3 (06:36→18:47)
[2017-07-10] MEDS ORDERED: DEXAMETHASONE 10 MG/1 ML VIAL IV ONE ×2 (08:00→09:00)
[2017-07-10] MEDS ORDERED: GRANISETRON 1 MG/1 ML VIAL IV SCH (09:00)
[2017-07-10] MEDS: PANTOPRAZOLE 40 MG VIAL IV SCH (10:22)
[2017-07-10] MEDS: FLUCONAZOLE INJ 100 MG in IV BAG 1 EACH IV SCH (11:10)
[2017-07-10] MEDS: GRANISETRON 1 MG/1 ML VIAL IV SCH (11:10)
[2017-07-10] MEDS: ZINC OXIDE PASTE 113 GM TUBE TOP SCH ×2 (11:16→21:04)
[2017-07-10] MEDS ORDERED: HEPARIN LOCK FLUSH 500 UNIT/5 ML SYRINGE IV ONE (16:24)
[2017-07-11] MEDS: INSULIN REGULAR 100 UNIT/ML SUBCUT SCH ×4 (00:58→17:13)
[2017-07-11] MEDS: methylPREDNISolone SOD SUC 40 MG/1 ML VIAL IV SCH ×3 (00:58→16:52)
[2017-07-11] MEDS: ALBUTEROL/IPRATROPIUM 3 ML NEB RESP TX SCH ×6 (02:36→22:57)
[2017-07-11 07:06] LABS: Basophils % 0.1 % (0.0-0.8); Hematocrit 36.6 VOL% (42.0-52.0); Immature Granulocytes % 0.4 %; Immature Granulocytes Absolute 0.03 #; Lymphocytes # 0.3 10*3/uL (1.4-4.0); Lymphocytes % 3.6 % (21.2-54.2); Mean Corpuscular HGB Conc 32.8 GM/DL (32-36); Mean Corpuscular Hemoglobin 28 PG (27-34); Mean Corpuscular Volume 84.5 FL (87-102); Mean Platelet Volume 11.6 FL (9.6-12.0); Monocytes # 0.3 10*3/uL (0.11-0.8); Monocytes % 4.8 % (1.7-12.7); Neutrophils # 6.3 10*3/uL (1.4-7.4); Neutrophils % 91.1 % (38.7-73.9); Platelet Count 104 T/CUMM (130-400); Red Blood Count 4.33 MC/CUMM (3.8-5.5); White Blood Count 6.9 T/CUMM (4-12)
[2017-07-11 07:36] LABS: Band Neutrophils 3 % (0-10); Hypochromasia 1+; Lymphocytes 3 % (20-55); Microcytosis 1+; Platelet Estimate Decreased; Segmented Neutrophils 92 % (50-85); Total Cells Counted 100
[2017-07-11 07:37] LABS: Albumin 1.9 G/DL (3.4-5.0); Bilirubin,Total 0.9 MG/DL (0.2-1.0); Calcium 7.6 MG/DL (8.5-10.1); Osmolality,Calculated 280.5 MOS/KG (273-304); Potassium 3.4 MMOL/L (3.5-5.1); Total Protein 5.5 G/DL (6.4-8.3)
[2017-07-11] MEDS: ZINC OXIDE PASTE 113 GM TUBE TOP SCH ×2 (08:54→21:00)
[2017-07-11] MEDS: GRANISETRON 1 MG/1 ML VIAL IV SCH (08:54)
[2017-07-11] MEDS: PANTOPRAZOLE 40 MG VIAL IV SCH (08:54)
[2017-07-11] MEDS: FLUCONAZOLE INJ 100 MG in IV BAG 1 EACH IV SCH (10:10)
[2017-07-11] MEDS ORDERED: POTASSIUM CHLORIDE RIDER 10 MEQ in PREMIX 1 EACH IV PRN (16:04)
[2017-07-12] MEDS: methylPREDNISolone SOD SUC 40 MG/1 ML VIAL IV SCH ×3 (00:24→18:11)
[2017-07-12] MEDS: INSULIN REGULAR 100 UNIT/ML SUBCUT SCH ×4 (01:30→18:10)
[2017-07-12] MEDS: ALBUTEROL/IPRATROPIUM 3 ML NEB RESP TX SCH ×5 (02:55→19:34)
[2017-07-12 04:58] LABS: Basophils % 0.1 % (0.0-0.8); Hematocrit 37.8 VOL% (42.0-52.0); Immature Granulocytes % 0.9 %; Immature Granulocytes Absolute 0.08 #; Lymphocytes # 0.3 10*3/uL (1.4-4.0); Lymphocytes % 3.3 % (21.2-54.2); Mean Corpuscular HGB Conc 31.7 GM/DL (32-36); Mean Corpuscular Hemoglobin 28 PG (27-34); Mean Corpuscular Volume 86.9 FL (87-102); Mean Platelet Volume 12.1 FL (9.6-12.0); Monocytes # 0.2 10*3/uL (0.11-0.8); Neutrophils # 8.8 10*3/uL (1.4-7.4); Neutrophils % 93.7 % (38.7-73.9); Platelet Count 89 T/CUMM (130-400); Red Blood Count 4.35 MC/CUMM (3.8-5.5); Red Cell Distribution Width 17.9 % (9.3-17.3); White Blood Count 9.4 T/CUMM (4-12)
[2017-07-12 05:26] LABS: Calcium 8.4 MG/DL (8.5-10.1); Osmolality,Calculated 282.4 MOS/KG (273-304); Potassium 3.6 MMOL/L (3.5-5.1)
[2017-07-12 05:29] LABS: Albumin 2.1 G/DL (3.4-5.0); Bilirubin,Total 0.8 MG/DL (0.2-1.0); Calcium 8.8 MG/DL (8.5-10.1); Osmolality,Calculated 282.4 MOS/KG (273-304); Potassium 3.5 MMOL/L (3.5-5.1); Total Protein 6.2 G/DL (6.4-8.3)
[2017-07-12 05:36] LABS: Band Neutrophils 4 % (0-10); Lymphocytes 3 % (20-55); Platelet Estimate Decreased; Segmented Neutrophils 93 % (50-85); Total Cells Counted 100
[2017-07-12] MEDS: GRANISETRON 1 MG/1 ML VIAL IV SCH (10:04)
[2017-07-12] MEDS: PANTOPRAZOLE 40 MG VIAL IV SCH (10:06)
[2017-07-12] MEDS: ZINC OXIDE PASTE 113 GM TUBE TOP SCH ×2 (10:13→22:07)
[2017-07-12] MEDS ORDERED: DEXTROSE 50% 25 GM/50 ML VIAL IV PRN (10:26)
[2017-07-12] MEDS ORDERED: GLUCAGON 1 MG VIAL IM PRN (10:26)
[2017-07-12] MEDS: FAT EMULSION 20% 250 ML IV SCH (16:05)
[2017-07-12] MEDS ORDERED: MULTIVITAMIN INJ 10 ML, TRACE ELEMENTS (5) 1 ML in AMINO ACIDS/DEXT/LYTES 5-15% 2,000 ML IV SCH (17:00)
[2017-07-12] MEDS ORDERED: DEXTROSE 10% 1,000 ML IV PRN (17:00)
[2017-07-13] MEDS: ALBUTEROL/IPRATROPIUM 3 ML NEB RESP TX SCH ×6 (00:35→19:48)
[2017-07-13] MEDS: methylPREDNISolone SOD SUC 40 MG/1 ML VIAL IV SCH ×3 (00:43→18:49)
[2017-07-13] MEDS: INSULIN REGULAR 100 UNIT/ML SUBCUT SCH ×4 (00:43→19:15)
[2017-07-13 06:03] LABS: Basophils % 0.1 % (0.0-0.8); Hematocrit 39.9 VOL% (42.0-52.0); Hemoglobin 12.6 GM/DL (14.0-18.0); Immature Granulocytes % 0.6 %; Immature Granulocytes Absolute 0.08 #; Lymphocytes # 0.3 10*3/uL (1.4-4.0); Mean Corpuscular HGB Conc 31.6 GM/DL (32-36); Mean Corpuscular Hemoglobin 28 PG (27-34); Mean Corpuscular Volume 87.5 FL (87-102); Mean Platelet Volume 11.7 FL (9.6-12.0); Monocytes # 0.2 10*3/uL (0.11-0.8); Monocytes % 1.7 % (1.7-12.7); Neutrophils # 11.8 10*3/uL (1.4-7.4); Neutrophils % 95.6 % (38.7-73.9); Platelet Count 56 T/CUMM (130-400); Red Blood Count 4.56 MC/CUMM (3.8-5.5); Red Cell Distribution Width 17.4 % (9.3-17.3); White Blood Count 12.4 T/CUMM (4-12)
[2017-07-13 06:38] LABS: Calcium 8.5 MG/DL (8.5-10.1); Osmolality,Calculated 283.3 MOS/KG (273-304); Potassium 3.8 MMOL/L (3.5-5.1)
[2017-07-13 06:48] LABS: Band Neutrophils 2 % (0-10); Hypochromasia 1+; Lymphocytes 6 % (20-55); Microcytosis 1+; Platelet Estimate Decreased; Segmented Neutrophils 91 % (50-85); Total Cells Counted 100
[2017-07-13 07:20] LABS: Albumin 2.2 G/DL (3.4-5.0); Bilirubin,Total 0.7 MG/DL (0.2-1.0); Calcium 8.6 MG/DL (8.5-10.1); Osmolality,Calculated 281.4 MOS/KG (273-304); Potassium 3.9 MMOL/L (3.5-5.1); Total Protein 6.3 G/DL (6.4-8.3)
[2017-07-13] MEDS: ZINC OXIDE PASTE 113 GM TUBE TOP SCH ×2 (09:34→21:22)
[2017-07-13] MEDS: GRANISETRON 1 MG/1 ML VIAL IV SCH (09:35)
[2017-07-13] MEDS: PANTOPRAZOLE 40 MG VIAL IV SCH (09:35)
[2017-07-13] MEDS: MULTIVITAMIN INJ 10 ML, TRACE ELEMENTS (5) 1 ML in AMINO ACIDS/DEXT/LYTES 5-15% 2,000 ML IV SCH (18:48)
[2017-07-13] MEDS: FAT EMULSION 20% 250 ML IV SCH (18:49)
[2017-07-14] MEDS: ALBUTEROL/IPRATROPIUM 3 ML NEB RESP TX SCH ×8 (00:41→23:18)
[2017-07-14] MEDS: INSULIN REGULAR 100 UNIT/ML SUBCUT SCH ×4 (00:42→19:08)
[2017-07-14] MEDS: methylPREDNISolone SOD SUC 40 MG/1 ML VIAL IV SCH ×3 (01:12→19:16)
[2017-07-14] MEDS: METOPROLOL TARTRATE 5 MG/5 ML VIAL IV PRN (01:50)
[2017-07-14 05:44] LABS: Basophils % 0.1 % (0.0-0.8); Hematocrit 38.6 VOL% (42.0-52.0); Hemoglobin 12.9 GM/DL (14.0-18.0); Immature Granulocytes % 1.2 %; Immature Granulocytes Absolute 0.13 #; Lymphocytes # 0.2 10*3/uL (1.4-4.0); Lymphocytes % 1.5 % (21.2-54.2); Mean Corpuscular HGB Conc 33.4 GM/DL (32-36); Mean Corpuscular Hemoglobin 28 PG (27-34); Monocytes # 0.1 10*3/uL (0.11-0.8); Monocytes % 1.3 % (1.7-12.7); NRBC # 0.04 10*3/uL; Neutrophils # 10.6 10*3/uL (1.4-7.4); Neutrophils % 95.9 % (38.7-73.9); Platelet Count 50 T/CUMM (130-400); Red Blood Count 4.54 MC/CUMM (3.8-5.5); Red Cell Distribution Width 17.4 % (9.3-17.3); White Blood Count 11.1 T/CUMM (4-12)
[2017-07-14 06:16] LABS: Albumin 2.2 G/DL (3.4-5.0); Bilirubin,Total 0.6 MG/DL (0.2-1.0); Calcium 8.2 MG/DL (8.5-10.1); Osmolality,Calculated 276.7 MOS/KG (273-304); Potassium 3.3 MMOL/L (3.5-5.1); Total Protein 6.1 G/DL (6.4-8.3)
[2017-07-14 06:35] LABS: Band Neutrophils 4 % (0-10); Lymphocytes 2 % (20-55); Platelet Estimate Decreased; Segmented Neutrophils 88 % (50-85); Total Cells Counted 100
[2017-07-14] MEDS: GRANISETRON 1 MG/1 ML VIAL IV SCH (12:01)
[2017-07-14] MEDS: PANTOPRAZOLE 40 MG VIAL IV SCH (12:01)
[2017-07-14] MEDS: ZINC OXIDE PASTE 113 GM TUBE TOP SCH ×3 (12:01→21:55)
[2017-07-14] MEDS: FAT EMULSION 20% 250 ML IV SCH ×2 (19:01→19:17)
[2017-07-14] MEDS: MULTIVITAMIN INJ 10 ML, TRACE ELEMENTS (5) 1 ML in AMINO ACIDS/DEXT/LYTES 5-15% 2,000 ML IV SCH (19:17)
[2017-07-15] MEDS: INSULIN REGULAR 100 UNIT/ML SUBCUT SCH ×4 (00:37→18:10)
[2017-07-15] MEDS: methylPREDNISolone SOD SUC 40 MG/1 ML VIAL IV SCH ×3 (00:39→18:38)
[2017-07-15] MEDS: ALBUTEROL/IPRATROPIUM 3 ML NEB RESP TX SCH ×5 (03:30→19:44)
[2017-07-15 06:07] LABS: Calcium 8.4 MG/DL (8.5-10.1); Osmolality,Calculated 282.8 MOS/KG (273-304); Potassium 3.5 MMOL/L (3.5-5.1); Prealbumin 15.8 MG/DL (20-40)
[2017-07-15] MEDS: GRANISETRON 1 MG/1 ML VIAL IV SCH (09:52)
[2017-07-15] MEDS: PANTOPRAZOLE 40 MG VIAL IV SCH (09:55)
[2017-07-15] MEDS: ZINC OXIDE PASTE 113 GM TUBE TOP SCH ×2 (09:58→20:21)
[2017-07-15] MEDS ORDERED: ceFAZolin 1,000 MG in SYRINGE 1 EACH IV ONE (11:14)
[2017-07-15] MEDS: SODIUM CHLORIDE 0.9% 1,000 ML IV SCH (11:30)
[2017-07-15 12:00] LABS: Basophils % 0.4 % (0.0-0.8); Hematocrit 36.2 VOL% (42.0-52.0); Hemoglobin 11.7 GM/DL (14.0-18.0); Immature Granulocytes % 1.6 %; Immature Granulocytes Absolute 0.18 #; Lymphocytes # 0.4 10*3/uL (1.4-4.0); Lymphocytes % 3.8 % (21.2-54.2); Mean Corpuscular HGB Conc 32.3 GM/DL (32-36); Mean Corpuscular Hemoglobin 28 PG (27-34); Mean Corpuscular Volume 87.9 FL (87-102); Mean Platelet Volume 11.1 FL (9.6-12.0); Monocytes # 0.3 10*3/uL (0.11-0.8); Monocytes % 2.3 % (1.7-12.7); Neutrophils # 10.1 10*3/uL (1.4-7.4); Neutrophils % 91.9 % (38.7-73.9); Platelet Count 50 T/CUMM (130-400); Red Blood Count 4.12 MC/CUMM (3.8-5.5); Red Cell Distribution Width 17.2 % (9.3-17.3)
[2017-07-15 13:09] LABS: Band Neutrophils 1 % (0-10); Hypochromasia 1+; Lymphocytes 4 % (20-55); Microcytosis 1+; Platelet Estimate Decreased; Segmented Neutrophils 94 % (50-85); Total Cells Counted 100
[2017-07-15] MEDS: TRACE ELEMENTS (5) 1 ML, MULTIVITAMIN INJ 10 ML in AMINO ACIDS/DEXT/LYTES 5-15% 2,000 ML IV SCH (17:35)
[2017-07-15] MEDS: MULTIVITAMIN INJ 10 ML, TRACE ELEMENTS (5) 1 ML in AMINO ACIDS/DEXT/LYTES 5-15% 2,000 ML IV SCH (17:40)
[2017-07-15] MEDS: FAT EMULSION 20% 250 ML IV SCH (17:40)
[2017-07-16] MEDS: ALBUTEROL/IPRATROPIUM 3 ML NEB RESP TX SCH ×6 (00:08→19:05)
[2017-07-16] MEDS: methylPREDNISolone SOD SUC 40 MG/1 ML VIAL IV SCH ×3 (00:34→18:48)
[2017-07-16] MEDS: INSULIN REGULAR 100 UNIT/ML SUBCUT SCH ×4 (00:36→18:47)
[2017-07-16] MEDS: SODIUM CHLORIDE 0.9% 1,000 ML IV SCH ×2 (00:38→14:48)
[2017-07-16 07:01] LABS: Calcium 8.1 MG/DL (8.5-10.1); Osmolality,Calculated 279.8 MOS/KG (273-304); Potassium 3.4 MMOL/L (3.5-5.1)
[2017-07-16 07:39] LABS: Basophils % 0.3 % (0.0-0.8); Hematocrit 32.2 VOL% (42.0-52.0); Hemoglobin 10.3 GM/DL (14.0-18.0); Immature Granulocytes % 0.9 %; Immature Granulocytes Absolute 0.11 #; Lymphocytes # 0.3 10*3/uL (1.4-4.0); Lymphocytes % 2.8 % (21.2-54.2); Mean Corpuscular Hemoglobin 28 PG (27-34); Monocytes # 0.3 10*3/uL (0.11-0.8); Monocytes % 2.5 % (1.7-12.7); Neutrophils # 10.9 10*3/uL (1.4-7.4); Neutrophils % 93.5 % (38.7-73.9); Red Blood Count 3.66 MC/CUMM (3.8-5.5); White Blood Count 11.7 T/CUMM (4-12)
[2017-07-16 07:42] LABS: Platelet Count 57 T/CUMM (130-400)
[2017-07-16 07:56] LABS: Band Neutrophils 1 % (0-10); Lymphocytes 3 % (20-55); Segmented Neutrophils 93 % (50-85); Total Cells Counted 100
[2017-07-16 07:57] LABS: Hypochromasia 1+; Microcytosis 1+; Platelet Estimate Decreased
[2017-07-16] MEDS ORDERED: ceFAZolin 1,000 MG in SYRINGE 1 EACH IV ONE (08:30)
[2017-07-16 08:40] LABS: INR 1.2; PT Patient Result 12.1 SECS
[2017-07-16] MEDS: PANTOPRAZOLE 40 MG VIAL IV SCH (10:31)
[2017-07-16] MEDS: GRANISETRON 1 MG/1 ML VIAL IV SCH (10:33)
[2017-07-16] MEDS: ZINC OXIDE PASTE 113 GM TUBE TOP SCH ×2 (10:35→20:20)
[2017-07-16] MEDS ORDERED: SODIUM PHOSPHATE INJ 15 MMOL in SODIUM CHLORIDE 0.9% 250 ML IV ONE (12:00)
[2017-07-16] MEDS ORDERED: PROPOFOL 200 MG/20 ML VIAL IV ONE (12:55)
[2017-07-16] MEDS ORDERED: LIDOCAINE 1% 5 ML VIAL ONE (12:55)
[2017-07-16] MEDS: FAT EMULSION 20% 250 ML IV SCH (14:47)
[2017-07-16] MEDS: TRACE ELEMENTS (5) 1 ML, MULTIVITAMIN INJ 10 ML in AMINO ACIDS/DEXT/LYTES 5-15% 2,000 ML IV SCH (16:57)
[2017-07-16] MEDS ORDERED: FUROSEMIDE 40 MG/4 ML VIAL IV ONE (21:44)
[2017-07-17] MEDS: methylPREDNISolone SOD SUC 40 MG/1 ML VIAL IV SCH ×3 (00:21→18:57)
[2017-07-17] MEDS: INSULIN REGULAR 100 UNIT/ML SUBCUT SCH ×4 (00:21→18:15)
[2017-07-17] MEDS: ALBUTEROL/IPRATROPIUM 3 ML NEB RESP TX SCH ×6 (00:32→19:48)
[2017-07-17] MEDS: MORPHINE 4 MG/1 ML VIAL IV PRN (02:28)
[2017-07-17 05:30] LABS: Basophils % 0.1 % (0.0-0.8); Hematocrit 31.6 VOL% (42.0-52.0); Hemoglobin 10.1 GM/DL (14.0-18.0); Immature Granulocytes % 1.1 %; Immature Granulocytes Absolute 0.11 #; Lymphocytes # 0.3 10*3/uL (1.4-4.0); Lymphocytes % 3.3 % (21.2-54.2); Mean Corpuscular Hemoglobin 28 PG (27-34); Mean Corpuscular Volume 87.1 FL (87-102); Mean Platelet Volume 11.5 FL (9.6-12.0); Monocytes # 0.3 10*3/uL (0.11-0.8); Monocytes % 3.3 % (1.7-12.7); Neutrophils # 9.4 10*3/uL (1.4-7.4); Neutrophils % 92.2 % (38.7-73.9); Platelet Count 62 T/CUMM (130-400); Red Blood Count 3.63 MC/CUMM (3.8-5.5); Red Cell Distribution Width 17.1 % (9.3-17.3); White Blood Count 10.2 T/CUMM (4-12)
[2017-07-17 06:02] LABS: Hypochromasia 1+; Lymphocytes 2 % (20-55); Microcytosis Slight; Platelet Estimate Decreased; Segmented Neutrophils 94 % (50-85); Total Cells Counted 100
[2017-07-17 06:21] LABS: Calcium 7.9 MG/DL (8.5-10.1); Potassium 3.5 MMOL/L (3.5-5.1)
[2017-07-17] MEDS: ZINC OXIDE PASTE 113 GM TUBE TOP SCH ×2 (10:20→20:05)
[2017-07-17] MEDS: PANTOPRAZOLE 40 MG VIAL IV SCH (10:25)
[2017-07-17] MEDS: GRANISETRON 1 MG/1 ML VIAL IV SCH (10:28)
[2017-07-18] MEDS: methylPREDNISolone SOD SUC 40 MG/1 ML VIAL IV SCH ×3 (00:10→19:02)
[2017-07-18] MEDS: INSULIN REGULAR 100 UNIT/ML SUBCUT SCH ×4 (00:15→18:30)
[2017-07-18] MEDS: ALBUTEROL/IPRATROPIUM 3 ML NEB RESP TX SCH ×6 (00:22→19:49)
[2017-07-18 06:10] LABS: Basophils % 0.1 % (0.0-0.8); Eosinophils % 0.1 % (0.00-10.9); Hematocrit 32.7 VOL% (42.0-52.0); Hemoglobin 10.6 GM/DL (14.0-18.0); Immature Granulocytes % 0.7 %; Immature Granulocytes Absolute 0.06 #; Lymphocytes # 0.4 10*3/uL (1.4-4.0); Lymphocytes % 4.1 % (21.2-54.2); Mean Corpuscular HGB Conc 32.4 GM/DL (32-36); Mean Corpuscular Hemoglobin 28 PG (27-34); Mean Corpuscular Volume 86.3 FL (87-102); Mean Platelet Volume 12.1 FL (9.6-12.0); Monocytes # 0.5 10*3/uL (0.11-0.8); Neutrophils # 8.1 10*3/uL (1.4-7.4); Red Blood Count 3.79 MC/CUMM (3.8-5.5); Red Cell Distribution Width 17.5 % (9.3-17.3)
[2017-07-18 06:16] LABS: Platelet Count 70 T/CUMM (130-400)
[2017-07-18 06:42] LABS: Calcium 8.2 MG/DL (8.5-10.1); Potassium 3.5 MMOL/L (3.5-5.1)
[2017-07-18 07:41] LABS: Band Neutrophils 8 % (0-10); Hypochromasia 1+; Lymphocytes 3 % (20-55); Platelet Estimate Decreased; Polychromasia Slight; Segmented Neutrophils 83 % (50-85); Total Cells Counted 100
[2017-07-18] MEDS: PANTOPRAZOLE 40 MG VIAL IV SCH (10:16)
[2017-07-18] MEDS: GRANISETRON 1 MG/1 ML VIAL IV SCH (10:17)
[2017-07-18] MEDS: ZINC OXIDE PASTE 113 GM TUBE TOP SCH (10:18)
[2017-07-19] MEDS: ALBUTEROL/IPRATROPIUM 3 ML NEB RESP TX SCH ×6 (00:06→19:11)
[2017-07-19] MEDS: INSULIN REGULAR 100 UNIT/ML SUBCUT SCH ×4 (00:27→18:16)
[2017-07-19] MEDS: methylPREDNISolone SOD SUC 40 MG/1 ML VIAL IV SCH ×3 (00:35→18:12)
[2017-07-19] MEDS: ZINC OXIDE PASTE 113 GM TUBE TOP SCH ×3 (00:35→20:28)
[2017-07-19 05:50] LABS: Basophils % 0.1 % (0.0-0.8); Hematocrit 31.8 VOL% (42.0-52.0); Hemoglobin 10.4 GM/DL (14.0-18.0); Immature Granulocytes % 0.6 %; Immature Granulocytes Absolute 0.05 #; Lymphocytes # 0.3 10*3/uL (1.4-4.0); Lymphocytes % 3.6 % (21.2-54.2); Mean Corpuscular HGB Conc 32.7 GM/DL (32-36); Mean Corpuscular Hemoglobin 28 PG (27-34); Mean Corpuscular Volume 86.2 FL (87-102); Mean Platelet Volume 12.2 FL (9.6-12.0); Monocytes # 0.3 10*3/uL (0.11-0.8); Monocytes % 3.2 % (1.7-12.7); Neutrophils % 92.5 % (38.7-73.9); Platelet Count 81 T/CUMM (130-400); Red Blood Count 3.69 MC/CUMM (3.8-5.5); Red Cell Distribution Width 17.2 % (9.3-17.3); White Blood Count 8.6 T/CUMM (4-12)
[2017-07-19 06:26] LABS: Band Neutrophils 1 % (0-10); Eosinophils 1 % (0-10); Lymphocytes 10 % (20-55); Segmented Neutrophils 85 % (50-85); Total Cells Counted 100
[2017-07-19 06:27] LABS: Hypochromasia 1+
[2017-07-19 06:28] LABS: Microcytosis Slight; Platelet Estimate Decreased
[2017-07-19 06:53] LABS: Calcium 8.4 MG/DL (8.5-10.1); Osmolality,Calculated 276.2 MOS/KG (273-304); Potassium 3.9 MMOL/L (3.5-5.1)
[2017-07-19] MEDS: APIXABAN 5 MG TABLET PO SCH ×2 (11:31→20:28)
[2017-07-19] MEDS: LANSOPRAZOLE ODT 30 MG TABLET PEG SCH (11:31)
[2017-07-19] MEDS: GRANISETRON 1 MG/1 ML VIAL IV SCH (11:35)
[2017-07-20] MEDS: ALBUTEROL/IPRATROPIUM 3 ML NEB RESP TX SCH ×7 (00:16→23:06)
[2017-07-20] MEDS: methylPREDNISolone SOD SUC 40 MG/1 ML VIAL IV SCH ×3 (00:34→18:06)
[2017-07-20] MEDS: INSULIN REGULAR 100 UNIT/ML SUBCUT SCH ×4 (00:34→18:05)
[2017-07-20 05:21] LABS: Hematocrit 30.6 VOL% (42.0-52.0); Hemoglobin 10.1 GM/DL (14.0-18.0); Immature Granulocytes % 0.5 %; Immature Granulocytes Absolute 0.05 #; Lymphocytes # 0.5 10*3/uL (1.4-4.0); Lymphocytes % 5.5 % (21.2-54.2); Mean Corpuscular Hemoglobin 28 PG (27-34); Mean Corpuscular Volume 85.7 FL (87-102); Mean Platelet Volume 11.4 FL (9.6-12.0); Monocytes # 0.4 10*3/uL (0.11-0.8); Monocytes % 4.7 % (1.7-12.7); Neutrophils # 8.4 10*3/uL (1.4-7.4); Neutrophils % 89.3 % (38.7-73.9); Red Blood Count 3.57 MC/CUMM (3.8-5.5); Red Cell Distribution Width 17.2 % (9.3-17.3); White Blood Count 9.5 T/CUMM (4-12)
[2017-07-20 05:22] LABS: Platelet Count 91 T/CUMM (130-400)
[2017-07-20 05:49] LABS: Calcium 8.5 MG/DL (8.5-10.1); Potassium 4.1 MMOL/L (3.5-5.1)
[2017-07-20 06:42] LABS: Band Neutrophils 1 % (0-10); Hypochromasia 2+; Lymphocytes 3 % (20-55); Microcytosis 1+; Platelet Estimate Decreased; Segmented Neutrophils 92 % (50-85); Total Cells Counted 100
[2017-07-20] MEDS: GRANISETRON 1 MG/1 ML VIAL IV SCH (10:22)
[2017-07-20] MEDS: ZINC OXIDE PASTE 113 GM TUBE TOP SCH ×2 (10:22→20:22)
[2017-07-20] MEDS: LANSOPRAZOLE ODT 30 MG TABLET PEG SCH (10:25)
[2017-07-20] MEDS: APIXABAN 5 MG TABLET PO SCH ×2 (10:25→21:00)
[2017-07-20] MEDS: LACTULOSE 20 GM/30 ML UDCUP PO PRN (20:22)
[2017-07-21] MEDS: methylPREDNISolone SOD SUC 40 MG/1 ML VIAL IV SCH ×2 (00:38→13:57)
[2017-07-21] MEDS: INSULIN REGULAR 100 UNIT/ML SUBCUT SCH ×4 (01:01→18:08)
[2017-07-21] MEDS: ALBUTEROL/IPRATROPIUM 3 ML NEB RESP TX SCH ×6 (02:28→23:46)
[2017-07-21 03:39] LABS: Basophils % 0.1 % (0.0-0.8); Hematocrit 32.1 VOL% (42.0-52.0); Hemoglobin 10.1 GM/DL (14.0-18.0); Immature Granulocytes % 0.7 %; Immature Granulocytes Absolute 0.07 #; Lymphocytes # 0.4 10*3/uL (1.4-4.0); Lymphocytes % 3.8 % (21.2-54.2); Mean Corpuscular HGB Conc 31.5 GM/DL (32-36); Mean Corpuscular Hemoglobin 28 PG (27-34); Mean Corpuscular Volume 89.2 FL (87-102); Mean Platelet Volume 11.7 FL (9.6-12.0); Monocytes # 0.4 10*3/uL (0.11-0.8); Monocytes % 3.6 % (1.7-12.7); Neutrophils # 9.4 10*3/uL (1.4-7.4); Neutrophils % 91.8 % (38.7-73.9); Platelet Count 111 T/CUMM (130-400); Red Cell Distribution Width 17.4 % (9.3-17.3); White Blood Count 10.2 T/CUMM (4-12)
[2017-07-21 04:06] LABS: Calcium 7.8 MG/DL (8.5-10.1); Osmolality,Calculated 281.8 MOS/KG (273-304); Potassium 4.3 MMOL/L (3.5-5.1)
[2017-07-21 04:12] LABS: Band Neutrophils 15 % (0-10); Lymphocytes 2 % (20-55); Segmented Neutrophils 83 % (50-85); Total Cells Counted 100
[2017-07-21 04:13] LABS: Anisocytosis 1+; Ovalocytes 1+; Poikilocytosis 1+
[2017-07-21] MEDS: GRANISETRON 1 MG/1 ML VIAL IV SCH (12:53)
[2017-07-21] MEDS: APIXABAN 5 MG TABLET PO SCH ×2 (12:55→20:26)
[2017-07-21] MEDS: LANSOPRAZOLE ODT 30 MG TABLET PEG SCH (12:55)
[2017-07-21] MEDS: ZINC OXIDE PASTE 113 GM TUBE TOP SCH ×2 (12:56→20:26)
[2017-07-21] MEDS: MORPHINE 4 MG/1 ML VIAL IV PRN (22:33)
[2017-07-22] MEDS: INSULIN REGULAR 100 UNIT/ML SUBCUT SCH ×4 (00:19→18:48)
[2017-07-22] MEDS: ALBUTEROL/IPRATROPIUM 3 ML NEB RESP TX SCH ×6 (03:43→23:03)
[2017-07-22 04:32] LABS: Basophils % 0.2 % (0.0-0.8); Eosinophils % 0.2 % (0.00-10.9); Hematocrit 34.1 VOL% (42.0-52.0); Hemoglobin 10.6 GM/DL (14.0-18.0); Immature Granulocytes % 1.8 %; Immature Granulocytes Absolute 0.17 #; Lymphocytes # 1.1 10*3/uL (1.4-4.0); Lymphocytes % 11.2 % (21.2-54.2); Mean Corpuscular HGB Conc 31.1 GM/DL (32-36); Mean Corpuscular Hemoglobin 28 PG (27-34); Mean Corpuscular Volume 89.7 FL (87-102); Mean Platelet Volume 11.6 FL (9.6-12.0); Monocytes # 0.6 10*3/uL (0.11-0.8); Monocytes % 6.7 % (1.7-12.7); Neutrophils # 7.6 10*3/uL (1.4-7.4); Neutrophils % 79.9 % (38.7-73.9); Platelet Count 116 T/CUMM (130-400); Red Cell Distribution Width 17.2 % (9.3-17.3); White Blood Count 9.5 T/CUMM (4-12)
[2017-07-22 05:09] LABS: Calcium 8.1 MG/DL (8.5-10.1); Osmolality,Calculated 275.8 MOS/KG (273-304); Potassium 4.1 MMOL/L (3.5-5.1); Prealbumin 17.8 MG/DL (20-40)
[2017-07-22 05:21] LABS: Giant Platelets Few; Hypochromasia 1+; Lymphocytes 9 % (20-55); Microcytosis Slight; Platelet Estimate Decreased; Segmented Neutrophils 84 % (50-85); Total Cells Counted 100
[2017-07-22] MEDS: MAGNESIUM SULF RIDER 2 GM in PREMIX 1 EACH IV PRN (06:20)
[2017-07-22] MEDS: GRANISETRON 1 MG/1 ML VIAL IV SCH (09:04)
[2017-07-22] MEDS: LANSOPRAZOLE ODT 30 MG TABLET PEG SCH (09:04)
[2017-07-22] MEDS: APIXABAN 2.5 MG TABLET PO SCH (09:04)
[2017-07-22] MEDS: predniSONE 20 MG TABLET PO SCH (09:04)
[2017-07-22] MEDS: ZINC OXIDE PASTE 113 GM TUBE TOP SCH ×2 (09:05→20:51)
[2017-07-22] MEDS ORDERED: DEXAMETHASONE 10 MG/1 ML VIAL IV ONE (11:26)
[2017-07-23] MEDS: INSULIN REGULAR 100 UNIT/ML SUBCUT SCH ×4 (00:04→19:24)
[2017-07-23] MEDS: ALBUTEROL/IPRATROPIUM 3 ML NEB RESP TX SCH ×5 (03:41→19:08)
[2017-07-23 05:07] LABS: Basophils % 0.3 % (0.0-0.8); Hematocrit 30.8 VOL% (42.0-52.0); Hemoglobin 9.6 GM/DL (14.0-18.0); Immature Granulocytes % 1.6 %; Immature Granulocytes Absolute 0.19 #; Lymphocytes # 0.8 10*3/uL (1.4-4.0); Lymphocytes % 7.1 % (21.2-54.2); Mean Corpuscular HGB Conc 31.2 GM/DL (32-36); Mean Corpuscular Hemoglobin 28 PG (27-34); Mean Corpuscular Volume 88.8 FL (87-102); Mean Platelet Volume 12.2 FL (9.6-12.0); Monocytes # 0.3 10*3/uL (0.11-0.8); Monocytes % 2.8 % (1.7-12.7); Neutrophils # 10.2 10*3/uL (1.4-7.4); Neutrophils % 88.2 % (38.7-73.9); Platelet Count 118 T/CUMM (130-400); Red Blood Count 3.47 MC/CUMM (3.8-5.5); Red Cell Distribution Width 17.2 % (9.3-17.3); White Blood Count 11.5 T/CUMM (4-12)
[2017-07-23 05:33] LABS: Band Neutrophils 3 % (0-10); Giant Platelets Few; Hypochromasia 1+; Lymphocytes 7 % (20-55); Ovalocytes Slight; Platelet Estimate Decreased; Segmented Neutrophils 86 % (50-85); Total Cells Counted 100
[2017-07-23 05:34] LABS: Microcytosis Slight
[2017-07-23 05:48] LABS: Albumin 1.9 G/DL (3.4-5.0); Bilirubin,Total 0.6 MG/DL (0.2-1.0); Calcium 7.8 MG/DL (8.5-10.1); Osmolality,Calculated 278.7 MOS/KG (273-304); Potassium 3.6 MMOL/L (3.5-5.1); Total Protein 5.7 G/DL (6.4-8.3)
[2017-07-23] MEDS ORDERED: GRANISETRON 1 MG/1 ML VIAL IV ONE (08:30)
[2017-07-23] MEDS ORDERED: CARBOplatin 200 MG in SODIUM CHLORIDE 0.9% 250 ML IV ONE (09:00)
[2017-07-23] MEDS: predniSONE 20 MG TABLET PO SCH (09:46)
[2017-07-23] MEDS: LANSOPRAZOLE ODT 30 MG TABLET PEG SCH (09:46)
[2017-07-23] MEDS: APIXABAN 2.5 MG TABLET PO SCH (09:46)
[2017-07-23] MEDS: ZINC OXIDE PASTE 113 GM TUBE TOP SCH ×2 (09:47→20:08)
[2017-07-23] MEDS: GRANISETRON 1 MG/1 ML VIAL IV SCH (09:47)
[2017-07-24] MEDS: ALBUTEROL/IPRATROPIUM 3 ML NEB RESP TX SCH ×6 (00:19→19:07)
[2017-07-24] MEDS: INSULIN REGULAR 100 UNIT/ML SUBCUT SCH ×4 (00:26→18:56)
[2017-07-24 05:14] LABS: Basophils % 0.1 % (0.0-0.8); Eosinophils % 0.1 % (0.00-10.9); Hematocrit 29.1 VOL% (42.0-52.0); Hemoglobin 9.5 GM/DL (14.0-18.0); Immature Granulocytes % 0.8 %; Immature Granulocytes Absolute 0.08 #; Lymphocytes # 0.9 10*3/uL (1.4-4.0); Lymphocytes % 9.7 % (21.2-54.2); Mean Corpuscular HGB Conc 32.6 GM/DL (32-36); Mean Corpuscular Hemoglobin 28 PG (27-34); Mean Corpuscular Volume 86.9 FL (87-102); Mean Platelet Volume 12.4 FL (9.6-12.0); Monocytes # 0.2 10*3/uL (0.11-0.8); Monocytes % 1.8 % (1.7-12.7); Neutrophils # 8.4 10*3/uL (1.4-7.4); Neutrophils % 87.5 % (38.7-73.9); Platelet Count 120 T/CUMM (130-400); Red Blood Count 3.35 MC/CUMM (3.8-5.5); Red Cell Distribution Width 17.2 % (9.3-17.3); White Blood Count 9.7 T/CUMM (4-12)
[2017-07-24 05:42] LABS: Hypochromasia 1+; Platelet Estimate Normal
[2017-07-24 05:43] LABS: Microcytosis Slight
[2017-07-24 05:55] LABS: Albumin 1.9 G/DL (3.4-5.0); Bilirubin,Total 0.4 MG/DL (0.2-1.0); Calcium 8.1 MG/DL (8.5-10.1); Osmolality,Calculated 273.8 MOS/KG (273-304); Total Protein 5.6 G/DL (6.4-8.3)
[2017-07-24] MEDS: GRANISETRON 1 MG/1 ML VIAL IV SCH (08:31)
[2017-07-24] MEDS: LANSOPRAZOLE ODT 30 MG TABLET PEG SCH (08:35)
[2017-07-24] MEDS: predniSONE 20 MG TABLET PO SCH (08:35)
[2017-07-24] MEDS: APIXABAN 2.5 MG TABLET PO SCH (08:35)
[2017-07-24] MEDS: ZINC OXIDE PASTE 113 GM TUBE TOP SCH ×2 (08:35→20:53)
[2017-07-25] MEDS: ALBUTEROL/IPRATROPIUM 3 ML NEB RESP TX SCH ×7 (00:05→23:50)
[2017-07-25 04:00] LABS: Basophils % 0.1 % (0.0-0.8); Eosinophils % 0.2 % (0.00-10.9); Hematocrit 29.8 VOL% (42.0-52.0); Hemoglobin 9.4 GM/DL (14.0-18.0); Immature Granulocytes % 0.7 %; Immature Granulocytes Absolute 0.07 #; Lymphocytes # 0.8 10*3/uL (1.4-4.0); Lymphocytes % 8.2 % (21.2-54.2); Mean Corpuscular HGB Conc 31.5 GM/DL (32-36); Mean Corpuscular Hemoglobin 28 PG (27-34); Mean Corpuscular Volume 89.8 FL (87-102); Mean Platelet Volume 12.2 FL (9.6-12.0); Monocytes # 0.1 10*3/uL (0.11-0.8); Monocytes % 1.4 % (1.7-12.7); Neutrophils # 8.7 10*3/uL (1.4-7.4); Neutrophils % 89.4 % (38.7-73.9); Platelet Count 137 T/CUMM (130-400); Red Blood Count 3.32 MC/CUMM (3.8-5.5); White Blood Count 9.7 T/CUMM (4-12)
[2017-07-25 04:41] LABS: Band Neutrophils 5 % (0-10); Lymphocytes 10 % (20-55); Metamyelocytes 1 %; Myelocytes 1 %; Segmented Neutrophils 82 % (50-85)
[2017-07-25 04:42] LABS: Hypochromasia 1+
[2017-07-25 04:43] LABS: Microcytosis 1+; Ovalocytes 1+; Platelet Estimate Decreased
[2017-07-25 04:44] LABS: Total Cells Counted 100
[2017-07-25 04:48] LABS: Bilirubin,Total 0.4 MG/DL (0.2-1.0); Calcium 7.8 MG/DL (8.5-10.1); Potassium 4.2 MMOL/L (3.5-5.1); Total Protein 5.4 G/DL (6.4-8.3)
[2017-07-25 05:39] LABS: Prealbumin 15.7 MG/DL (20-40)
[2017-07-25] MEDS: INSULIN REGULAR 100 UNIT/ML SUBCUT SCH ×4 (06:44→18:44)
[2017-07-25] MEDS: GRANISETRON 1 MG/1 ML VIAL IV SCH (09:31)
[2017-07-25] MEDS: APIXABAN 2.5 MG TABLET PO SCH (09:35)
[2017-07-25] MEDS: predniSONE 20 MG TABLET PO SCH (09:35)
[2017-07-25] MEDS: LANSOPRAZOLE ODT 30 MG TABLET PEG SCH (09:35)
[2017-07-25] MEDS: ZINC OXIDE PASTE 113 GM TUBE TOP SCH (09:36)
[2017-07-25] MEDS ORDERED: TUBERCULIN SKIN TEST 0.1 ML SYRINGE INTRADERM ONE (14:44)
[2017-07-26] MEDS: INSULIN REGULAR 100 UNIT/ML SUBCUT SCH ×4 (01:19→18:07)
[2017-07-26] MEDS: ALBUTEROL/IPRATROPIUM 3 ML NEB RESP TX SCH ×6 (03:37→23:41)
[2017-07-26 05:20] LABS: Basophils % 0.1 % (0.0-0.8); Eosinophils % 0.1 % (0.00-10.9); Hematocrit 28.3 VOL% (42.0-52.0); Immature Granulocytes % 1.1 %; Immature Granulocytes Absolute 0.08 #; Lymphocytes # 0.9 10*3/uL (1.4-4.0); Lymphocytes % 11.9 % (21.2-54.2); Mean Corpuscular HGB Conc 31.8 GM/DL (32-36); Mean Corpuscular Hemoglobin 29 PG (27-34); Mean Corpuscular Volume 89.6 FL (87-102); Mean Platelet Volume 12.5 FL (9.6-12.0); Monocytes # 0.2 10*3/uL (0.11-0.8); Monocytes % 2.1 % (1.7-12.7); Neutrophils # 6.1 10*3/uL (1.4-7.4); Neutrophils % 84.7 % (38.7-73.9); Platelet Count 138 T/CUMM (130-400); Red Blood Count 3.16 MC/CUMM (3.8-5.5); Red Cell Distribution Width 16.6 % (9.3-17.3); White Blood Count 7.2 T/CUMM (4-12)
[2017-07-26 05:53] LABS: Bilirubin,Total 0.7 MG/DL (0.2-1.0); Calcium 7.7 MG/DL (8.5-10.1); Osmolality,Calculated 271.1 MOS/KG (273-304); Potassium 4.4 MMOL/L (3.5-5.1); Total Protein 5.4 G/DL (6.4-8.3)
[2017-07-26 06:50] LABS: Hypochromasia 2+
[2017-07-26] MEDS ORDERED: MYLANTA/LIDO VISC 2:1 300 ML BOTTLE SWISH/SWAL PRN (10:30)
[2017-07-26] MEDS ORDERED: BENZTROPINE 2 MG/2 ML AMP IV PRN (10:30)
[2017-07-26] MEDS ORDERED: LACTULOSE 20 GM/30 ML UDCUP PO PRN (10:30)
[2017-07-26] MEDS ORDERED: traMADol 50 MG TABLET PO PRN (10:30)
[2017-07-26] MEDS ORDERED: LOPERAMIDE 2 MG CAPSULE PO PRN ×2 (10:30)
[2017-07-26] MEDS ORDERED: ALUMINUM/MAGNES/SIMETH MAX STR 30 ML UDCUP PO PRN (10:30)
[2017-07-26] MEDS ORDERED: ALPRAZolam 0.25 MG TABLET PO PRN (10:30)
[2017-07-26] MEDS ORDERED: diphenhydrAMINE CAP 25 MG CAPSULE PO PRN (10:30)
[2017-07-26] MEDS ORDERED: chlorproMAZINE INJ 25 MG in SODIUM CHLORIDE 0.9% 100 ML IV PRN (10:30)
[2017-07-26] MEDS ORDERED: chlorproMAZINE INJ 50 MG in SODIUM CHLORIDE 0.9% 100 ML IV PRN (10:30)
[2017-07-26] MEDS ORDERED: MYLANTA/LIDO VISC 2:1 300 ML BOTTLE SWISH/SPIT PRN (10:30)
[2017-07-26] MEDS ORDERED: ONDANSETRON 4 MG/2 ML VIAL IV PRN (10:30)
[2017-07-26] MEDS ORDERED: TEMAZEPAM 7.5 MG CAPSULE PO PRN (10:30)
[2017-07-26] MEDS ORDERED: ACETAMINOPHEN 325 MG TABLET PO PRN (10:30)
[2017-07-26] MEDS ORDERED: guaiFENesin 200 MG/10 ML UDCUP PO PRN (10:30)
[2017-07-26] MEDS ORDERED: PROMETHAZINE INJ 25 MG in SODIUM CHLORIDE 0.9% 50 ML IV PRN (10:30)
[2017-07-26] MEDS ORDERED: MAGNESIUM HYDROXIDE SUSP 30 ML UDCUP PO PRN (10:30)
[2017-07-26] MEDS ORDERED: chlorproMAZINE 25 MG TABLET PO PRN (10:30)
[2017-07-26] MEDS: GRANISETRON 1 MG/1 ML VIAL IV SCH (17:09)
[2017-07-26] MEDS: APIXABAN 2.5 MG TABLET PO SCH (17:09)
[2017-07-26] MEDS: ZINC OXIDE PASTE 113 GM TUBE TOP SCH ×3 (17:09→20:14)
[2017-07-26] MEDS: predniSONE 20 MG TABLET PO SCH (17:10)
[2017-07-26] MEDS: LANSOPRAZOLE ODT 30 MG TABLET PEG SCH (17:10)
[2017-07-26] MEDS ORDERED: LEVOFLOXACIN INJ 500 MG in PREMIX 1 EACH IV ONE (20:00)
[2017-07-27] MEDS: INSULIN REGULAR 100 UNIT/ML SUBCUT SCH ×4 (01:06→18:53)
[2017-07-27] MEDS: ALBUTEROL/IPRATROPIUM 3 ML NEB RESP TX SCH ×6 (04:18→23:29)
[2017-07-27 04:44] LABS: Basophils % 0.2 % (0.0-0.8); Eosinophils % 0.2 % (0.00-10.9); Hematocrit 28.6 VOL% (42.0-52.0); Hemoglobin 9.1 GM/DL (14.0-18.0); Immature Granulocytes % 0.9 %; Immature Granulocytes Absolute 0.04 #; Lymphocytes # 0.6 10*3/uL (1.4-4.0); Lymphocytes % 13.8 % (21.2-54.2); Mean Corpuscular HGB Conc 31.8 GM/DL (32-36); Mean Corpuscular Hemoglobin 29 PG (27-34); Mean Corpuscular Volume 90.2 FL (87-102); Mean Platelet Volume 11.9 FL (9.6-12.0); Monocytes # 0.2 10*3/uL (0.11-0.8); Monocytes % 3.7 % (1.7-12.7); Neutrophils # 3.5 10*3/uL (1.4-7.4); Neutrophils % 81.2 % (38.7-73.9); Platelet Count 117 T/CUMM (130-400); Red Blood Count 3.17 MC/CUMM (3.8-5.5); Red Cell Distribution Width 16.4 % (9.3-17.3); White Blood Count 4.3 T/CUMM (4-12)
[2017-07-27 05:11] LABS: Albumin 1.9 G/DL (3.4-5.0); Bilirubin,Total 0.5 MG/DL (0.2-1.0); Calcium 8.2 MG/DL (8.5-10.1); Osmolality,Calculated 269.4 MOS/KG (273-304); Total Protein 5.9 G/DL (6.4-8.3)
[2017-07-27 05:28] LABS: Band Neutrophils 3 % (0-10); Giant Platelets Few; Hypochromasia 1+; Lymphocytes 13 % (20-55); Nucleated Red Blood Cells 1 (0-5); Ovalocytes Slight; Platelet Estimate Decreased; Segmented Neutrophils 81 % (50-85); Total Cells Counted 100
[2017-07-27 05:29] LABS: Microcytosis Slight
[2017-07-27] MEDS: APIXABAN 2.5 MG TABLET PO SCH (13:13)
[2017-07-27] MEDS: predniSONE 20 MG TABLET PO SCH (13:13)
[2017-07-27] MEDS: GRANISETRON 1 MG/1 ML VIAL IV SCH (13:13)
[2017-07-27] MEDS: LANSOPRAZOLE ODT 30 MG TABLET PEG SCH (13:13)
[2017-07-27] MEDS: ZINC OXIDE PASTE 113 GM TUBE TOP SCH ×3 (15:32→20:10)
[2017-07-27] MEDS: METOPROLOL TARTRATE 5 MG/5 ML VIAL IV PRN (18:30)
[2017-07-28] MEDS: INSULIN REGULAR 100 UNIT/ML SUBCUT SCH ×4 (00:15→19:18)
[2017-07-28] MEDS: ALBUTEROL/IPRATROPIUM 3 ML NEB RESP TX SCH ×5 (02:50→19:21)
[2017-07-28 06:13] LABS: Basophils % 0.2 % (0.0-0.8); Eosinophils % 0.4 % (0.00-10.9); Hematocrit 26.3 VOL% (42.0-52.0); Hemoglobin 8.5 GM/DL (14.0-18.0); Immature Granulocytes % 0.9 %; Immature Granulocytes Absolute 0.05 #; Mean Corpuscular HGB Conc 32.3 GM/DL (32-36); Mean Corpuscular Hemoglobin 29 PG (27-34); Mean Corpuscular Volume 90.4 FL (87-102); Mean Platelet Volume 12.1 FL (9.6-12.0); Monocytes # 0.3 10*3/uL (0.11-0.8); Monocytes % 6.1 % (1.7-12.7); Neutrophils % 73.4 % (38.7-73.9); Platelet Count 155 T/CUMM (130-400); Red Blood Count 2.91 MC/CUMM (3.8-5.5); Red Cell Distribution Width 16.2 % (9.3-17.3); White Blood Count 5.4 T/CUMM (4-12)
[2017-07-28 06:44] LABS: Band Neutrophils 8 % (0-10); Hypochromasia 1+; Lymphocytes 17 % (20-55); Microcytosis Slight; Ovalocytes Slight; Platelet Estimate Normal; Segmented Neutrophils 71 % (50-85); Total Cells Counted 100
[2017-07-28 06:45] LABS: Albumin 1.9 G/DL (3.4-5.0); Bilirubin,Total 0.4 MG/DL (0.2-1.0); Calcium 8.2 MG/DL (8.5-10.1); Osmolality,Calculated 270.2 MOS/KG (273-304); Potassium 3.9 MMOL/L (3.5-5.1); Total Protein 5.6 G/DL (6.4-8.3)
[2017-07-28] MEDS: GRANISETRON 1 MG/1 ML VIAL IV SCH (10:14)
[2017-07-28] MEDS: APIXABAN 2.5 MG TABLET PO SCH (10:15)
[2017-07-28] MEDS: predniSONE 20 MG TABLET PO SCH (10:15)
[2017-07-28] MEDS: LANSOPRAZOLE ODT 30 MG TABLET PEG SCH (10:15)
[2017-07-28] MEDS: ZINC OXIDE PASTE 113 GM TUBE TOP SCH ×3 (10:15→20:09)
[2017-07-29] MEDS: ALBUTEROL/IPRATROPIUM 3 ML NEB RESP TX SCH ×5 (00:10→14:10)
[2017-07-29] MEDS: INSULIN REGULAR 100 UNIT/ML SUBCUT SCH ×3 (00:47→12:57)
[2017-07-29 04:53] LABS: Basophils % 0.3 % (0.0-0.8); Eosinophils % 0.3 % (0.00-10.9); Hemoglobin 8.3 GM/DL (14.0-18.0); Immature Granulocytes % 0.5 %; Immature Granulocytes Absolute 0.02 #; Lymphocytes # 0.9 10*3/uL (1.4-4.0); Lymphocytes % 22.4 % (21.2-54.2); Mean Corpuscular HGB Conc 33.2 GM/DL (32-36); Mean Corpuscular Hemoglobin 29 PG (27-34); Mean Corpuscular Volume 88.3 FL (87-102); Monocytes # 0.4 10*3/uL (0.11-0.8); Monocytes % 10.3 % (1.7-12.7); Neutrophils # 2.6 10*3/uL (1.4-7.4); Neutrophils % 66.2 % (38.7-73.9); Platelet Count 174 T/CUMM (130-400); Red Blood Count 2.83 MC/CUMM (3.8-5.5); Red Cell Distribution Width 16.6 % (9.3-17.3)
[2017-07-29 05:27] LABS: Anisocytosis 1+; Band Neutrophils 47 % (0-10); Hypochromasia Slight; Lymphocytes 18 % (20-55); Platelet Estimate Normal; Segmented Neutrophils 22 % (50-85); Total Cells Counted 100
[2017-07-29 05:32] LABS: Osmolality,Calculated 275.8 MOS/KG (273-304); Potassium 4.3 MMOL/L (3.5-5.1)
[2017-07-29 05:35] LABS: Albumin 1.8 G/DL (3.4-5.0); Bilirubin,Total 0.5 MG/DL (0.2-1.0); Calcium 8.2 MG/DL (8.5-10.1); Osmolality,Calculated 272.1 MOS/KG (273-304); Total Protein 5.7 G/DL (6.4-8.3)
[2017-07-29] MEDS: GRANISETRON 1 MG/1 ML VIAL IV SCH (08:40)
[2017-07-29] MEDS: predniSONE 20 MG TABLET PO SCH (08:44)
[2017-07-29] MEDS: APIXABAN 2.5 MG TABLET PO SCH (08:44)
[2017-07-29] MEDS: LANSOPRAZOLE ODT 30 MG TABLET PEG SCH (08:44)
[2017-07-29] MEDS: ZINC OXIDE PASTE 113 GM TUBE TOP SCH (09:02)
[2017-07-29 16:16] VITALS: BP 161/65
== END 2017-07-29 16:40 | disposition hospice, home (50) | DRG 166 ==
LOC: N.ED 16:21 → SUATTDRO 17:26 → N.EDINP 17:26 → N.ICU 18:30 → N.4E 07-10 14:14
PROVIDERS: ADMIT Internal Medicine
PROC: BRONCHB (2017-06-17 07:20)
PROC: [UNRECOGNIZED PROCEDURE] (2017-06-21 12:05)
PROC: EGDWPEG (ICD-10-PCS; 2017-07-16 08:35)